=== PATIENT | male | born 1995 | race Caucasian/White ===

== ENCOUNTER → 2023-01-10 | Outpatient (CLI) | payer BC, SELFPAY ==
[2023-01-10 10:18] LABS: Absolute Lymphocyte Count 1.26 X10^3/uL (0.83-4.51); Absolute Neutrophil Count 2.1 X10^3/uL (2.0-7.7); Basophil# 0.02 X10^3/uL; Basophil% 0.5 % (0-1); Eosinophil# 0.06 X10^3/uL; Eosinophils% 1.6 % (0-5); Hemoglobin 16.2 g/dL (13.0-16.5); Lymphocyte # 1.26 X10^3/ul (0.83-4.51); Lymphocyte % 33.7 % (19-41); Mean Corp Hgb Conc 34.5 g/dL (32-36); Mean Platelet Vol. 10.5 fl (6.2-12.0); Monocyte# 0.32 X10^3/uL; Monocyte% 8.6 % (0-10); NRBC Flagged by Analyzer 0 % (0-5); Neutrophil # 2.07 X10^3/uL (2.7-7.7); Neutrophil % 55.3 % (47-70); Platelet Count 175 K/mm3 (150-450); RBC Distribution Width CV 11.6 % (11.6-14.6); RBC Distribution Width SD 38.1 fl (35.1-43.9); Red Blood Count 5.22 M/mm3 (4.6-6.2); White Blood Count 3.7 K/mm3 (4.4-11.0)
[2023-01-10 11:03] LABS: Rheumatoid Factor < 10.0 IU/mL (<15)
[2023-01-16 14:07] LABS: Aspirgillus flavus Negative (Neg:<1:1); Aspirgillus fumigatus Negative (Neg:<1:1); Aspirgillus niger Negative (Neg:<1:1); Cytoplasmic Ab (C-ANCA) <1:20 titer (Neg:<1:20)
[2023-01-16 15:36] LABS: CCP IgG Antibodies 1 units (0-19); Immunoglobulin E 54 IU/mL (6-495); Perinuclear Ab (P-ANCA) <1:20 titer (Neg:<1:20)
[2023-01-19 02:45] LABS: Alternaria tenuis 0.19 kU/L (Class 0/I); Ash, White <0.10 kU/L (Class 0); Aspergillus fumigatus <0.10 kU/L (Class 0); Bermuda Grass <0.10 kU/L (Class 0); Birch <0.10 kU/L (Class 0); Black Walnut <0.10 kU/L (Class 0); Cat Hair / Dander,Stand <0.10 kU/L (Class 0); Cedar, Mountain <0.10 kU/L (Class 0); Cladosporium herbarum <0.10 kU/L (Class 0); Cockroach, American 0.51 kU/L (Class I); Cottonwood <0.10 kU/L (Class 0); D farinae Mite <0.10 kU/L (Class 0); D pteronyssinus <0.10 kU/L (Class 0); Dog Epithelia <0.10 kU/L (Class 0); Elm, American White <0.10 kU/L (Class 0); Immunoglobulin E 49 IU/mL (6-495); Maple/Box Elder <0.10 kU/L (Class 0); Mouse Urine <0.10 kU/L (Class 0); Mulberry, White <0.10 kU/L (Class 0); Oak, White <0.10 kU/L (Class 0); Pecan <0.10 kU/L (Class 0); Penicillium Notatum <0.10 kU/L (Class 0); Pigweed, Rough <0.10 kU/L (Class 0); Ragweed, Short/Common <0.10 kU/L (Class 0); Russian Thistle <0.10 kU/L (Class 0); Sheep Sorrel <0.10 kU/L (Class 0); Sycamore, American <0.10 kU/L (Class 0); Timothy Grass <0.10 kU/L (Class 0)
[2023-01-19 20:26] LABS: ANTINUCLEAR ANTIBODIES DIRECT Negative (Negative)
== END | disposition home or self-care (01) ==
LOC: LAB 09:28
PROVIDERS: PCP Nurse Practitioner Family; Referring Provider Internal Medicine Critical Care Medicine; Visit Provider Internal Medicine Critical Care Medicine
DX: R06.02 Shortness of breath (principal)
CPT/HCPCS: 36415; 82785; 85025; 86003; 86038; 86200; 86225; 86235; 86256; 86431; 86606

== ENCOUNTER → 2023-02-15 | Outpatient (CLI) | payer BC, SELFPAY ==
[2023-02-15 08:53] VITALS: PULSE 55; PULSE 62; PULSE 64; PULSE 75; PULSE 76; PULSE 82; PULSE 85; PULSE 88; O2SAT 100; O2SAT 95; O2SAT 96; O2SAT 98; O2SAT 99
--- NOTE | 2023-02-16 07:37 | PCM.PSN.6M ---
PSN 6 Minute Walk Test 6 Minute Walk Test 6 Minute Walk Test: 6 Minute Walk Test PSN:6-Minute Walk Test Start: 02/15/23 08:53 Freq: Status: Active Protocol: [id number] Document 02/15/23 08:53 KAYLIN (Rec: 02/15/23 08:55 KAYLIN [id number]) 6 Minute Walk Test Date Performed 02/15/23 Time Performed 08:15 Height 5 ft 10 in Weight: 115 lb Weight in Pounds 115.[address]: Roberto Carlos Byrnes Assistive device used: None Pre-test Oxygen Delivery Method Room Air Pulse Ox (%) 98 Pulse Rate (60-100 beats/min) 55 L Dyspnea Andrew Scale (0-10) 0 Exertion Andrew Scale (6-20) 6 1st minute Oxygen Delivery Method Room Air Pulse Ox (%) 96 Pulse Rate (60-100 beats/min) 76 2nd minute Oxygen Delivery Method Room Air Pulse Ox (%) 95 Pulse Rate (60-100 beats/min) 82 3rd minute Oxygen Delivery Method Room Air Pulse Ox (%) 96 Pulse Rate (60-100 beats/min) 88 4th minute Oxygen Delivery Method Room Air Pulse Ox (%) 98 Pulse Rate (60-100 beats/min) 85 5th minute Oxygen Delivery Method Room Air Pulse Ox (%) 100 Pulse Rate (60-100 beats/min) 62 6th minute Oxygen Delivery Method Room Air Pulse Ox (%) 99 Pulse Rate (60-100 beats/min) 75 Dyspnea Andrew Scale (0-10) 1 Exertion Andrew Scale (6-20) 11 Post-test Oxygen Delivery Method Room Air Pulse Ox (%) 99 Pulse Rate (60-100 beats/min) 64 Full Laps Walked 16 Partial Lap, Number of Tiles Walked 18 Total Distance Walked (ft) 962 Interpretation Interpretation: The patient ambulated 962 feet over the course of 6 minutes beginning on room air without assistive devices. Pretesting oxygen saturation was noted to be 98% on room air. With ambulation, the sam oxygen saturation was 95%. There was no significant exertional oxygen desaturation. Recommendations Recommendations: There is no indication for the use of supplemental oxygen at this time.
== END | disposition home or self-care (01) ==
LOC: PSN 08:10
PROVIDERS: PCP Nurse Practitioner Family; Referring Provider Internal Medicine Critical Care Medicine; Visit Provider Internal Medicine Critical Care Medicine
DX: R06.02 Shortness of breath (principal)
CPT/HCPCS: 94618

== ENCOUNTER → 2023-02-22 | Outpatient (CLI) | payer BC, SELFPAY ==
--- NOTE | 2023-02-22 09:28 | RAD_ITS ---
STUDY: X-RAY CHEST REASON FOR EXAM: Male, 27 years old. Sob TECHNIQUE: PA and lateral views of the chest. COMPARISON: None. FINDINGS: The lungs are hyperinflated. Patient has a elongated chest. There is postoperative change overlying the right apex. However There is no demonstrated pleural abnormality. Normal size heart. Normal mediastinum and lupillo. Normal visualized pulmonary arteries. Normal visualized aortic arch and descending thoracic aorta. Normal visualized thoracic spine. Normal visualized ribs, clavicles, and shoulders. There is no demonstrated abnormality of the visualized soft tissue structures of the upper abdomen. RAD/Chest PA and Lateral IMPRESSION: Nonspecific hyperinflation of the lungs no visualized focal infiltrate. Postoperative changes overlying the right apex. Electronically Signed: Amalia Ivan MD at 22:21 EDT ,
--- NOTE | 2023-02-22 10:31 | BRONCHALL ---
Bronchoprovocation Challenge Bronchoprovocation Challenge Bronchoprovocation Challenge: Brief HPI: Patient is a 27 year old male, currently under the care of Dr. Byrnes, who presents to [facility] for a bronchoprovocation study secondary to diagnosis of dyspnea. Respiratory therapist reports good effort and reproducible results. Interpretation: Initial spirometry showed no large airways obstructive ventilatory defect. The patient was then given increasingly concentrated doses of methacholine in a stepwise/standardized fashion, using a modified ATS protocol. The patient?s maximum reduction in FEV1 was 2 percent predicted. Impression: Negative Bronchoprovocation study. This is NOT consistent with the diagnosis of asthma.
== END | disposition home or self-care (01) ==
PROVIDERS: PCP Nurse Practitioner Family; Visit Provider Internal Medicine Critical Care Medicine
DX: R06.02 Shortness of breath (principal)
CPT/HCPCS: 71046; 94070; 95070; J3490; J7674

== ENCOUNTER → 2023-03-16 | Outpatient (CLI) | payer BC, SELFPAY ==
--- NOTE | 2023-03-16 13:08 | ECHOD_ITS ---
Reason For Study: SOB Procedure This was a 2D Doppler, Color Flow transthoracic echocardiogram. Exam performed in department. Left Ventricle Normal LV size. Left ventricular systolic function is normal. The estimated ejection fraction is 55 %. Normal diastology for age. No regional wall motion abnormalities noted. Right Ventricle Normal RV size. Normal systolic function. Atria Normal left atrium. Normal right atrium. Patent foramen ovale. Hypermobile atrial septum. Mitral Valve Posterior leaflet mitral valve prolapse. Mild mitral valve prolapse, posterior leaflet. Tricuspid Valve Normal tricuspid valve. Aortic Valve Bicuspid aortic valve. Pulmonic Valve Normal pulmonic valve. Great Vessels Normal aortic root. The pulmonary artery is normal size. Normal inferior vena cava. Pericardium/Pleural No pericardial effusion. Medication 22 gauge I.V. with prn adaptor inserted into right arm. Performed a rapid injection of agitated mix of 9 cc saline and 1cc air to assess for atrial septal defect. MMode/2D Measurements & Calculations LVIDd: 5.4 cm IVSd: 0.70 cm Ao root diam: 3.3 cm LVIDs: 4.2 cm LVPWd: 0.78 cm LA dimension: 2.8 cm RVDd: 3.2 cm FS: 22.1 % LAV(MOD-bp): 39.6 ml LA A4 area: 15.7 cm2 RA A4 area: 14.0 cm2 LAV(MOD-bp) Indexed: 23.7 ml/m2 LAV(MOD-sp2): 39.1 ml LAV(MOD-sp4): 38.9 ml Time Measurements MV dec time: 0.32 sec Doppler Measurements & Calculations MV E max jay: 67.0 cm/sec Lat Peak E' Jay: 11.1 cm/sec Med Peak E' Jay: 11.4 cm/sec MV A max jay: 45.0 cm/sec E/E' lat: 6.1 E/E' med: 5.9 MV E/A: 1.5 MV V2 max: 78.6 cm/sec MV P1/2t max jay: 79.5 cm/sec Ao V2 max: 119.2 cm/sec MV max P.5 mmHg MV P1/2t: 95.4 msec Ao max P.7 mmHg MV V2 mean: 33.1 cm/sec MV dec slope: 243.9 cm/sec2 Ao V2 mean: 82.0 cm/sec MV mean P.57 mmHg Ao mean P.1 mmHg MV V2 VTI: 25.3 cm MVA(P1/2t): 2.3 cm2 Ao V2 VTI: 24.0 cm AV (velocity ratio): 0.52 LV V1 max: 66.3 cm/sec PA V2 max: 85.5 cm/sec LV V1 max P.8 mmHg PA V2 mean: 64.9 cm/sec LV V1 mean P.99 mmHg LV V1 mean: 45.9 cm/sec LV V1 VTI: 12.6 cm ECHO/Echo Complete Interpretation Summary Hypermobile atrial septum. Normal LV size. Left ventricular systolic function is normal. The estimated ejection fraction is 55 %. Normal diastology for age. Bicuspid aortic valve. Mild mitral valve prolapse, posterior leaflet Ordering Physician: Roberto Carlos Byrnes Referring Physician: Roberto Carlos Byrnes Performed By: Cachorro Stahl RCS
== END | disposition home or self-care (01) ==
PROVIDERS: PCP Nurse Practitioner Family; Referring Provider Internal Medicine Critical Care Medicine; Visit Provider Internal Medicine Critical Care Medicine
DX: R06.02 Shortness of breath (principal)
CPT/HCPCS: 93306; A4216

== ENCOUNTER → 2023-04-29 | Outpatient (CLI) | payer BC, SELFPAY ==
--- NOTE | 2023-05-02 07:11 | STRESSREP ---
Stress Test Report Exercise stress test. 27-year-old man with dyspnea on exertion Stress protocol: Resting EKG demonstrates sinus bradycardia with a rate of 54 bpm resting blood pressure is 130/90 mmHg. The patient exercised according to the regular Deondre protocol for a total duration of 12 minutes completing stage IV of the Deondre protocol and attaining a maximum heart rate of 164 bpm which was 84% of maximum predicted heart rate; the maximum workload was 13.4 metabolic equivalents. At rest there were no ST or T wave changes noted to suggest ischemia and at peak exercise upsloping ST changes only were noted which did not meet the criteria for ischemia. No clinical angina was noted the test was terminated due to the target heart rate being achieved/fatigue. The peak blood pressure was 180/80 mmHg. Rate-pressure product was 27,800, occasional premature ventricular complexes were noted with exercise especially during stage II with some couplets present. Conclusion: Stress test with no EKG criteria for ischemia at a high workload with premature ventricular complexes noted.
== END | disposition home or self-care (01) ==
LOC: CVS 11:44
PROVIDERS: PCP Nurse Practitioner Family; Referring Provider Internal Medicine Cardiovascular Disease; Visit Provider Internal Medicine Cardiovascular Disease
DX: R06.02 Shortness of breath (principal)
CPT/HCPCS: 93017

== ENCOUNTER 2023-05-21 09:58 | Emergency (ER) | payer BC, SELFPAY ==
[2023-05-21 09:59] VITALS: BP 190/93; PULSE 39; RESP 14; TEMP 36.6; O2SAT 100; BMI 16.0
--- NOTE | 2023-05-21 10:26 | EKG12_ITS ---
Test Reason : EDWARD Blood Pressure : / mmHG Vent. Rate : 067 BPM Atrial Rate : 067 BPM P-R Int : 128 ms QRS Dur : 092 ms QT Int : 404 ms P-R-T Axes : 063 095 068 degrees QTc Int : 426 ms Sinus rhythm with frequent Premature ventricular complexes in a pattern of bigeminy Rightward axis Incomplete right bundle branch block Borderline ECG Confirmed by BHASKAR LEUNG, DEBROAH ([id number]), editor & co founder TATA MICHAEL ([id number]) on 05/23/2023 12:57:31 PM Referred By: LOUANN Confirmed By:DEBORAH MURO MD
--- NOTE | 2023-05-21 10:30 | EX.ED.DYSGE1 ---
HPI History of Present Illness Chief Complaint: Dizziness Informant: patient Narrative Narrative: 27-year-old patient has been having palpitations with mild lightheadedness for years. He is followed with cardiology for this, he has been referred to EP at [facility], they did not want to do an EP study on him according to the patient because he is not that bad. He has never passed out. Today, he was at his PCPs for routine follow-up after being treated with an antibiotic for cervical lymphadenopathy of unknown etiology, he states that is completely gone and better now, and his PCP detected that he was bradycardic and he was feeling lightheaded again, and although he states this is not unusual for him he was referred to the ER to get checked. He does have some occasional loose diarrhea, but that is not severe or acute. [facility] Medical History Allergic rhinitis Asthma Bradycardia Bronchitis Chest pain Cough Fracture, rib H/O thoracic outlet syndrome Headache Peripheral cyanosis Pulmonary air trapping Scoliosis Shoulder pain Smokeless tobacco use Tachycardia Home Medications albuterol sulfate 90 mcg/actuation aerosol inhaler 2 puff inhalation Q6H PRN shortness of breath or wheezing 02/22/23 [History Last Taken Unknown] inhalational spacing device ([employer] Marie C spacer) #1 ea 02/22/23 [History Last Taken Unknown] ibuprofen 200 mg capsule 400 mg PO BID PRN 04/06/23 [History Last Taken Unknown] multivitamin with minerals-folic acid 200 mcg chewable tablet (Adult Multivitamin Gummies) tab PO 04/06/23 [History Last Taken Unknown] budesonide-formoterol HFA 160 mcg-4.5 mcg/actuation aerosol inhaler (Symbicort) 2 puff inhalation BID #3 ea 04/26/23 [Rx Last Taken Unknown] Allergy/AdvReac Type Severity Reaction Status Date / Time milk Allergy Severe Diarrhea Verified 05/21/23 10:01 amitriptyline Allergy Unknown dizziness Verified 05/21/23 10:01 gabapentin Allergy Unknown Unknown Verified 05/21/23 10:01 Penicillins Allergy Unknown unknown Verified 05/21/23 10:01 shellfish derived Allergy Unknown unknown Verified 05/21/23 10:01 amoxicillin [From Augmentin] Allergy Diarrhea Verified 05/21/23 10:01 clavulanic acid Allergy Diarrhea Verified 05/21/23 10:01 [From Augmentin] fish derived AdvReac Diarrhea Verified 05/21/23 10:01 [seafood - derived] Family History Mother Hypertension CVA (cerebral vascular accident) Grandfather Lung cancer paternal Grandmother Colon cancer paternal Diabetes Uterine cancer Grandfather Lung cancer maternal Surgical History History of resection of rib (12/16/15) History of tonsillectomy and adenoidectomy Social History Smoking Status: Never smoker alcohol intake: current alcohol intake frequency: holidays/special occasions only substance use type: does not use caffeine: Yes Type: carbonated beverages Number of servings: 1 ROS ROS ED Constitutional Constitutional ED: Denies chills or fever(s) Eyes Eyes: Denies change in vision or diplopia ENT ENT ED: Denies rhinorrhea or sore throat Cardiovascular Cardiovascular: Reports lightheadedness and palpitations; Denies chest pain Respiratory/Chest Respiratory/Chest: Denies cough or dyspnea Gastrointestinal Gastrointestinal: Reports diarrhea; Denies abdominal pain, melena, nausea or vomiting Genitourinary Genitourinary ED: Denies dysuria or hematuria Musculoskeletal Musculoskeletal: Denies back pain or neck pain Integumentary Denies abscess or rash Neurologic Neurologic: Reports paresthesias; Denies headache(s) or weakness Psychiatric Psychiatric: Denies anxiety or suicidal thoughts EXAM Physical Exam Const Vital Signs: 05/21/23 09:59 Temperature 97.9 F Temperature Source Temporal Pulse Rate 39 L Respiratory Rate 14 Blood Pressure 190/93 H Blood Pressure Mean 125 Pulse Ox 100 Oxygen Delivery Method Room Air Positive well nourished and well developed Constitutional Narrative: Marfanoid body habitus General Appearance ED: well developed and NAD HEENT Reports moist mucous membranes normocephalic and atraumatic Eyes PERRL and EOMs intact bilaterally Neck full ROM and supple Resp normal respiratory effort and clear to auscultation bilaterally Cardio no murmurs Rate: bradycardia Rhythm: abnormal rhythm regularly irregular (Correlating with ventricular bigeminy on the monitor) Peripheral Pulses: pulses 2+ throughout GI non-tender and non-distended Auscultation: normoactive bowel sounds Palpation: soft Back/Spine no CVA tenderness General Back: other FROM Extremity normal to inspection General Extremety ED: Negative for edema, pulses abnormal or tenderness General Extremity: Negative for edema or pulses abnormal Neuro oriented x3, CN's II-XII intact bilaterally and no sensory deficits noted Sensorium / Orientation: awake and alert Motor Exam: strength 5/5 throughout Skin no rashes or lesions noted and no wounds MDM MDM MDM Narrative Medical decision making narrative: Patient states he has followed with cardiology Dr. Bradley, and he has also been evaluated for an EP study. Furthermore, he has a marfanoid appearance to his body, he has tingling in all 4 extremities chronically, and he is being referred to genetics for evaluation. He also has a history of thoracic outlet syndrome I do not think that is related here. He is young and healthy and his blood pressures are little on the high side today, the triage blood pressure was 190/93, but while I am examining the patient he is 140/100. This is helping him to perfuse, and he has never passed out from this with symptoms for years. When he is in sinus rhythm here he has a rate of about 60 sometimes closer to 50, and then when he goes into bigeminy, he understandably cuts his rate down to around 30. He did this while I was talking to him and he looks well. He states he feels fine. He has compensated for this for years, when he feels more lightheaded than usual he moves around and does some activity and drinks caffeinated beverages, and that his heart rate goes up and he feels fine. I check some electrolytes on him because of the diarrhea, they are fine, and I do not think he needs any other testing emergently right now and he is in agreement. Lab Data Attestation: I reviewed the patient's lab results. Labs: Laboratory Results - last 24 hr 05/21/23 10:11 Sodium 138 Potassium 4.3 Chloride 106 Carbon Dioxide 28.0 Anion Gap 4 L BUN 10 Creatinine 1.05 Estim Creat Clear Calc 77.97 Est GFR (MDRD) Af Amer 108 Est GFR (MDRD) Non-Af 89 BUN/Creatinine Ratio 9.5 L Glucose 105 Calcium 9.9 Rhythm Strip Rhythm Strip: Sinus rhythm with intermittent ventricular bigeminy Rate: 60 Ectopy: PVC(s) EKG Initial EKG: Attestation: I personally reviewed and interpreted this EKG as follows: Interpretation: Sinus Rhythm Comments: Ventricular bigeminy with appropriate compensatory pauses, sinus and no bundle branch block or axis deviation Prior EKG tracings: available for review (Bigeminy was not on the prior EKG, which was performed as an outpatient, but morphology and axis is unchanged) Discharge Plan Triage Chief Complaint: Dizziness ED Provider: Stewart Lombardi Dx/Rx/DC Orders Clinical Impression: Ventricular bigeminy Instructions: PVCs Prescriptions: No Action albuterol sulfate 90 mcg/actuation HFA aerosol inhaler 2 puff inhalation Q6H PRN (Reason: shortness of breath or wheezing) Label Comments: INHALE 2 PUFFS BY MOUTH INTO LUNGS EVERY 6 HOURS NEEDED FOR SHORTNESS OF BREATH. (DME) Sherry Salazar [facility] Spacer See Rx Instructions .ROUTE .MEDSUPPLY Qty: 1 Label Comments: USE DIRECTED WITH INHALER Rx Instructions: As directed ibuprofen 200 mg capsule 400 mg PO BID PRN Adult Multivitamin Gummies 200 mcg tablet,chewable PO budesonide-formoterol [Symbicort] 160-4.5 mcg/actuation HFA aerosol inhaler 2 puff inhalation BID Qty: 3 3RF Primary Care Provider: Mary Hawley NP Referrals: Austen Bradley MD [Med Staff - Active Staff] - (if symptoms generally get worse or you have new issues) Mary Hawley CUSTOMER ENGINEER, CUSTOMER ENGINEER-C [Primary Care Provider] - Disposition Disposition: Home, Self Care
[2023-05-21 10:52] LABS: Anion Gap 4 (5-15); BUN 10 mg/dL (7-18); BUN/Creat Ratio 9.5 RATIO (10-20); Calcium,Total 9.9 mg/dL (8.5-10.1); Chloride 106 mmol/L (98-107); Creatinine, Serum 1.05 mg/dL (0.70-1.30); EST Glomerular Filtration Rate 89 mL/min (>60); Est Glom Filt Rate - Afr Amer 108 mL/min (>60); Estimated Creatinine Clearance 77.97 ml/min; Glucose 105 mg/dL (74-106); Potassium 4.3 mmol/L (3.5-5.1); Sodium Level 138 mmol/L (136-145)
[2023-05-21 11:46] VITALS: BP 109/77; PULSE 45; RESP 16; O2SAT 99
== END 2023-05-21 11:47 | disposition home or self-care (01) ==
PROVIDERS: Emergency Provider Emergency Medicine; PCP Nurse Practitioner Family; Visit Provider Emergency Medicine
DX: I49.8 Other specified cardiac arrhythmias (principal); R42 Dizziness and giddiness
CPT/HCPCS: 80048; 93005; 99284; A4216

== ENCOUNTER → 2023-06-06 | Outpatient (CLI) | payer BC, SELFPAY | END | disposition home or self-care (01) | LOC: PSN 13:15 | PROVIDERS: PCP Nurse Practitioner Family; Referring Provider Nurse Practitioner Family; Visit Provider Nurse Practitioner Family | DX: R00.1 Bradycardia, unspecified (principal) | CPT/HCPCS: 93225; 93226 ==

== ENCOUNTER → 2023-07-18 | Outpatient (CLI) | payer BC, SELFPAY ==
[2023-07-27 13:07] LABS: CF, Screen Comment: (.)
== END | disposition home or self-care (01) ==
LOC: LAB 15:30
PROVIDERS: PCP Nurse Practitioner Family; Referring Provider Nurse Practitioner Acute Care; Visit Provider Nurse Practitioner Acute Care
DX: R05.8 Other specified cough (principal)
CPT/HCPCS: 36415; 81220

== ENCOUNTER → 2023-08-19 | Outpatient (CLI) | payer BC, SELFPAY ==
[2023-08-19 17:50] LABS: Absolute Lymphocyte Count 2.86 X10^3/uL (0.83-4.51); Absolute Neutrophil Count 3.1 X10^3/uL (2.0-7.7); Basophil# 0.03 X10^3/uL; Basophil% 0.5 % (0-1); Eosinophil# 0.09 X10^3/uL; Eosinophils% 1.4 % (0-5); Hematocrit 47.3 % (40-54); Hemoglobin 15.9 g/dL (13.0-16.5); Lymphocyte # 2.86 X10^3/ul (0.83-4.51); Lymphocyte % 43.5 % (19-41); Mean Corp Hgb Conc 33.6 g/dL (32-36); Mean Corpuscular Hgb 30.5 pg (27.0-32.0); Mean Corpuscular Volume 90.8 fL (80-94); Mean Platelet Vol. 10.6 fl (6.2-12.0); Monocyte# 0.49 X10^3/uL; Monocyte% 7.4 % (0-10); NRBC Flagged by Analyzer 0 % (0-5); Platelet Count 204 K/mm3 (150-450); RBC Distribution Width CV 11.8 % (11.6-14.6); RBC Distribution Width SD 38.8 fl (35.1-43.9); Red Blood Count 5.21 M/mm3 (4.6-6.2); White Blood Count 6.6 K/mm3 (4.4-11.0)
[2023-08-19 18:25] LABS: Erythrocyte Sedimentation Rate < 1 mm/hr (0-20)
[2023-08-19 18:34] LABS: ALB/GLOB Ratio 1.4 RATIO (0.9-2.4); AST(SGOT) 14 U/L (15-37); Alanine Aminotransfer ALT/SGPT 29 U/L (16-61); Albumin, Serum 4.5 g/dL (3.2-5.0); Alkaline Phosphatase 83 U/L (45-117); Anion Gap 5 (5-15); BUN 14 mg/dL (7-18); BUN/Creat Ratio 12.8 RATIO (10-20); CRP < 2.90 mg/L (0.0-3.0); Chloride 107 mmol/L (98-107); Creatinine, Serum 1.09 mg/dL (0.70-1.30); EST Glomerular Filtration Rate 86 mL/min (>60); Est Glom Filt Rate - Afr Amer 103 mL/min (>60); Globulin 3.2 g/dL (2.2-4.2); Glucose 80 mg/dL (74-106); Potassium 3.6 mmol/L (3.5-5.1); Protein, Total 7.7 g/dL (6.4-8.2); Rheumatoid Factor < 10.0 IU/mL (<15); Sodium Level 140 mmol/L (136-145)
[2023-08-19 18:41] LABS: Color, Urine Yellow (Yellow); Glucose, Dipstick Normal (Normal); Ketone-Dipstick Negative (Negative); Leukocyte Esterase-Dipstick Negative /ul (Negative); Nitrite-Dipstick Negative (Negative); Occult Blood-Urine Negative /ul (Negative); Protein-Dipstick Negative (Negative); Urine Bilirubin Dipstick Negative (Negative); Urine Clarity Sl. Cloudy (Clear); Urine Urobilinogen Normal (Normal)
[2023-08-19 18:47] LABS: Hepatitis B Surface Antibody Non-Reactive; Hepatitis B Surface Antigen Non-Reactive (Nonreactive); Hepatitis C Antibody Non-Reactive (Nonreactive)
[2023-08-19 19:08] LABS: Protein, Urine (Random) 15.7 mg/dL (<11.9); Protein:Creat Ratio 102 mg/g CRE (0-200)
[2023-08-22 12:08] LABS: ANTINUCLEAR ANTIBODIES DIRECT Negative (Negative)
[2023-08-23 21:07] LABS: CCP IgG Antibodies 0 units (0-19); G6PD Quant Test 290 (156-397)
== END | disposition home or self-care (01) ==
LOC: MTLAB 15:17
PROVIDERS: PCP Nurse Practitioner Family; Referring Provider Internal Medicine Rheumatology; Visit Provider Internal Medicine Rheumatology
DX: M06.4 Inflammatory polyarthropathy (principal); M35.7 Hypermobility syndrome; M41.9 Scoliosis, unspecified
CPT/HCPCS: 36415; 80053; 81002; 82570; 82955; 84156; 85025; 85652; 86038; 86140; 86200; 86431; 86706; 86803; 87340

== ENCOUNTER → 2023-10-19 | Outpatient (CLI) | payer BC, SELFPAY ==
--- NOTE | 2023-10-19 17:18 | CT_ITS ---
EXAM: CT CHEST WITHOUT INTRAVENOUS CONTRAST CLINICAL INDICATION: eval left lower lobe mass TECHNIQUE: Helically acquired images were obtained of the chest without intravenous contrast. This CT exam was performed using one or more of the following dose reduction techniques: automated exposure control, adjustment of the mA and/or kV according to patient size, and/or use of iterative reconstruction technique. COMPARISON: No relevant prior studies available. FINDINGS: LUNGS AND PLEURAL SPACES: Unremarkable. No mass. No consolidation or edema. No pleural effusion or thickening. No pneumothorax. HEART: Unremarkable. Heart size is normal. No pericardial effusion. No significant coronary artery calcifications. MEDIASTINUM: Unremarkable. No mediastinal or hilar adenopathy. Esophagus is unremarkable. No hiatal hernia. THYROID: Unremarkable. No thyroid lesions. BONES/JOINTS: Unremarkable. No suspicious lytic or blastic abnormality. VASCULATURE: Unremarkable. Thoracic aorta is non-dilated. CT/Chest without Contrast IMPRESSION: Negative CT chest without intravenous contrast. Electronically Signed: Mann Foss MD at 0:09 EST ,
== END | disposition home or self-care (01) ==
LOC: CT 17:15
PROVIDERS: PCP Nurse Practitioner Family; Referring Provider Nurse Practitioner Acute Care; Visit Provider Nurse Practitioner Acute Care
DX: J98.4 Other disorders of lung (principal)
CPT/HCPCS: 71250

== ENCOUNTER → 2023-11-03 | Outpatient (CLI) | payer BC, SELFPAY ==
[2023-11-03 10:25] LABS: Absolute Lymphocyte Count 1.29 X10^3/uL (0.83-4.51); Basophil# 0.02 X10^3/uL; Basophil% 0.5 % (0-1); Eosinophil# 0.07 X10^3/uL; Eosinophils% 1.9 % (0-5); Hematocrit 45.1 % (40-54); Hemoglobin 15.5 g/dL (13.0-16.5); Lymphocyte # 1.29 X10^3/ul (0.83-4.51); Lymphocyte % 34.2 % (19-41); Mean Corp Hgb Conc 34.4 g/dL (32-36); Mean Corpuscular Hgb 30.9 pg (27.0-32.0); Mean Platelet Vol. 10.7 fl (6.2-12.0); Monocyte# 0.37 X10^3/uL; Monocyte% 9.8 % (0-10); NRBC Flagged by Analyzer 0 % (0-5); Neutrophil # 2.01 X10^3/uL (2.7-7.7); Neutrophil % 53.3 % (47-70); Platelet Count 186 K/mm3 (150-450); RBC Distribution Width CV 11.8 % (11.6-14.6); RBC Distribution Width SD 38.1 fl (35.1-43.9); Red Blood Count 5.01 M/mm3 (4.6-6.2); White Blood Count 3.8 K/mm3 (4.4-11.0)
[2023-11-03 10:39] LABS: ALB/GLOB Ratio 1.4 RATIO (0.9-2.4); AST(SGOT) 20 U/L (15-37); Alanine Aminotransfer ALT/SGPT 23 U/L (16-61); Alkaline Phosphatase 74 U/L (45-117); Anion Gap 3 (5-15); BUN 18 mg/dL (7-18); BUN/Creat Ratio 16.5 RATIO (10-20); Chloride 107 mmol/L (98-107); Creatinine, Serum 1.09 mg/dL (0.70-1.30); EST Glomerular Filtration Rate 85 mL/min (>60); Est Glom Filt Rate - Afr Amer 103 mL/min (>60); Globulin 2.9 g/dL (2.2-4.2); Glucose 110 mg/dL (74-106); Magnesium 2.4 mg/dL (1.6-2.6); Potassium 4.2 mmol/L (3.5-5.1); Protein, Total 6.9 g/dL (6.4-8.2); Sodium Level 138 mmol/L (136-145)
== END | disposition home or self-care (01) ==
LOC: MTLAB 08:19
PROVIDERS: PCP Nurse Practitioner Family; Referring Provider Internal Medicine Rheumatology; Visit Provider Internal Medicine Rheumatology
DX: M06.4 Inflammatory polyarthropathy (principal); M35.7 Hypermobility syndrome; Z86.69 Personal history of other diseases of the nervous system and sense organs; Z79.899 Other long term (current) drug therapy
CPT/HCPCS: 36415; 80053; 83735; 85025

== ENCOUNTER → 2023-12-07 | Outpatient (CLI) | payer BC, SELFPAY ==
--- OUTSIDE RECORDS SUMMARY | 2023-12-07 16:27 | XMS RPT_ITS | CCD ---
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 Name Role Phone MARY DOZIER Admitting Unavailable MARY DOZIER Primary Care Unavailable MARY DOZIER Attending Unavailable ROBERT BYRNES Consulting Unavailable PROVIDER, UNKNOWN Consulting Unavailable PROVIDER, UNKNOWN Consulting Unavailable PROVIDER, UNKNOWN Consulting Unavailable MARY DOZIER Admitting Unavailable MARY DOZIER Primary Care Unavailable MARY DOZIER Attending Unavailable ROBERT BYRNES Consulting Unavailable PROVIDER, UNKNOWN Consulting Unavailable PROVIDER, UNKNOWN Consulting Unavailable PROVIDER, UNKNOWN Consulting Unavailable Austen Bradley Unavailable Mary Dozier Primary Care Provider [phone] Roberto Carlos Byrnes Unavailable Mary Hall Primary Care Provider [phone] Austen Bradley MD Unavailable MARY DOZIER Primary Care Unavailable MARY DOZIER Referring Unavailable FABI MORA Attending Unavailable KIANNA DOZIERA Reva Primary Care Unavailable FABI MORA Attending Unavailable KIANNA DOZIERA Reva Primary Care Unavailable MARY DOZIER Referring Unavailable Mary Dozier CNP Primary Care Provider PADMA REYES Attending Unavailable KIANNA DOZIERA K Primary Care Unavailable MAURICE HANEY Referring Unavailable KIANNA DOZIERA Reva Primary Care Unavailable MAURICE HANEY Attending Unavailable AUSTEN BRADLEY Referring Unavailable MARY DOZIER Primary Care Unavailable Allergies Allergy Classification Reported Allergen(s) Allergy Type Date of Onset Reaction(s) Facility (2 sources) Amoxicillin; Translations: [AMOXICILLIN] Drug Allergy [address] [place] [address] Repository (7 sources) Amitriptyline; Translations: [AMITRIPTYLINE] Drug Allergy 3 Other: See Comments [facility] (7 sources) Amoxapine; Translations: [AMOXAPINE] Drug Allergy [address] [facility] (6 sources) Amoxicillin Drug Allergy [address] [facility] (7 sources) Clavulanate; Translations: [CLAVULANIC ACID] Drug Allergy [address] [facility] (7 sources) cow milk allergenic extract; Translations: [MILK] Drug Allergy [address] [facility] (7 sources) Fish derivative; Translations: [FISH DERIVED] Drug Intolerance [address] [facility] (7 sources) gabapentin; Translations: [GABAPENTIN] Drug Allergy [address] [facility] (7 sources) Penicillins; Translations: [PENICILLINS] Drug Allergy [address] [facility] (7 sources) Shellfish; Translations: [SHELLFISH] Food Intolerance 5 Other: See Comments [facility] Medications Current Medications Medication Drug Class(es) Dates Sig (Normalized) Sig (Original) iv contrast (will be provided with radiology test) (1 source) Start: 07-22-2023 End: 07-23-2023 iv contrast (will be provided with radiology test) Indications: PVCs (premature ventricular contractions) , Mitral valve prolapse , Bicuspid aortic valve , Palpitations , Other cardiomyopathy (HCC) MRI Cardiac w/Qflow Inject, intravenously, once for 1 dose. No IV access, insert saline lock prior to the beginning of sedation, infusion, injection of imaging exam. Discontinue saline lock post exam. If Pt has a central line or IVAD, may access for administration according to line specific nursing protocol. Once exam is complete flush line and de-access according to line specific nursing protocol in the MR contrast administration guidelines link 1 Each 0 07/22/2023 07/23/2023 Active Completed/Discontinued Medications Medication Drug Class(es) Dates Sig (Normalized) Sig (Original) albuterol 0.83 mg/ml inhalation solution (12 sources) beta2-Adrenergic Agonist Start: 07-18-2023 albuterol (PROVENTIL) 2.5 mg /3 mL (0.083 %) nebulizer solution Problems Active Problems Problem Classification Problem Date Documented Date Episodic/Chronic Anxiety disorders (6 sources) Anxiety disorder; Translations: [Anxiety disorder, unspecified] Onset: 03-01-2019 07-19-2023 Chronic Cardiac and circulatory congenital anomalies (10 sources) Bicuspid aortic valve; Translations: [Congenital insufficiency of aortic valve] Onset: 07-19-2023 07-19-2023 Chronic Cardiac dysrhythmias (10 sources) Multiple premature ventricular complexes; Translations: [Ventricular premature depolarization] Onset: 04-04-2019 07-19-2023 Chronic Essential hypertension (6 sources) Essential hypertension; Translations: [Essential (primary) hypertension] 07-19-2023 Chronic Heart valve disorders (16 sources) Aortic valve regurgitation; Translations: [Nonrheumatic aortic (valve) insufficiency] Onset: 08-01-2019 07-19-2023 Chronic Other acquired deformities (2 sources) Neuromuscular scoliosis, thoracolumbar region; Translations: [Scoliosis associated with other conditions] Onset: 07-28-2023 07-28-2023 Chronic Other lower respiratory disease (1 source) Cyanosis; Translations: [Cyanosis] Onset: 03-22-2023 Episodic Other nervous system disorders (7 sources) Thoracic outlet syndrome; Translations: [Brachial plexus disorders] Onset: 04-16-2015 12-17-2015 Chronic Other nervous system disorders (6 sources) Chronic pain syndrome; Translations: [Chronic pain syndrome] Onset: 02-14-2019 07-19-2023 Chronic Other nutritional; endocrine; and metabolic disorders (2 sources) Body mass index less than 16.5; Translations: [Body mass index (BMI) 19.9 or less, adult] Onset: 07-28-2023 07-28-2023 Episodic Other screening for suspected conditions (not mental disorders or infectious disease) (3 sources) Encounter for screening for diseases of the blood and blood-forming organs and certain disorders involving the immune mechanism; Translations: [Encounter for screening for other metabolic disorders] Onset: 03-22-2023 Episodic Jossie-; endo-; and myocarditis; cardiomyopathy (except that caused by tuberculosis or sexually transmitted disease) (2 sources) Cardiomyopathy; Translations: [Other cardiomyopathies] Onset: 09-29-2023 09-29-2023 Chronic Unclassified (2 sources) Labs Only; Translations: [Labs Only] Onset: 07-28-2023 Past or Other Problems Problem Classification Problem Date Documented Da te Episodic/Chronic Blindness and vision defects (6 sources) Amblyopia; Translations: [Unspecified amblyopia, unspecified eye] Onset: 02-14-2019 07-19-2023 Episodic Cardiac dysrhythmias (17 sources) Bradycardia, unspecified; Translations: [Bradycardia] Onset: 03-22-2023 07-19-2023 Episodic Nonspecific chest pain (6 sources) Atypical chest pain; Translations: [Other chest pain] Onset: 04-04-2019 07-19-2023 Episodic Other connective tissue disease (6 sources) Bursitis of right shoulder; Translations: [Bursitis of right shoulder] Onset: 07-08-2016 07-08-2016 Episodic Other connective tissue disease (6 sources) Fibromyositis; Translations: [Fibromyalgia] Onset: 03-05-2019 07-19-2023 Episodic Results Test Name Value Interpretation Reference Range Facil ity Vital Signs Date Time Vital Sign Value Performing Clinician Faci lity 07-28-2023 08:05-0400 Body height 177.8 cm Fabi Mora MD Work Phone: [facility] 07-28-2023 08:05-0400 Body mass index (BMI) [Ratio] 16.39 kg/m2 Fabi Mora MD Work Phone: [facility] 07-28-2023 08:05-0400 Body temperature 98.01 [degF] Fabi Mora MD Work Phone: [facility] 07-28-2023 08:05-0400 Body weight 51.8 kg Fabi Mora MD Work Phone: [facility] 07-28-2023 08:05-0400 Diastolic blood pressure 74 mm[Hg] Fabi Mora MD Work Phone: [facility] 07-28-2023 08:05-0400 Heart rate 45 /min Fabi Mora MD Work Phone: [facility] 07-28-2023 08:05-0400 Respiratory rate 16 /min Fabi Mora MD Work Phone: [facility] 07-28-2023 08:05-0400 SaO2% (BldA) [Mass fraction] 100 % Fabi Mora MD Work Phone: [facility] 07-28-2023 08:05-0400 Systolic blood pressure 123 mm[Hg] Fabi Mora MD Work Phone: [facility] Encounters Encounter Date Encounter Type Care Provider Facility Start: 10-06-2023 Telephone encounter Maurice huggins MD Work Phone: [place] PROVID[facility] ADULT Procedures Date Procedure Procedure Detail Performing Clinician Start: 09-29-2023 Cardiac mri w/wo con trast & further seq Maurice Haney MD Work Phone: Plan of Treatment Date Care Activity Detail Author Start: 07-20-2024 BP CONTROLLED (<130/80) BP CON TROLLED (<130/80) [facility] Start: 07-29-2023 Covid-19 Vaccine ( season) Covid-19 Vaccine ( season) [facility] Start: 07-29-2023 Influenza vaccination [facility] Start: 11-28-2022 DEPRESSION ASSESSMENT DEPRESSION ASS ESSMENT [facility] Start: 07-08-2021 COVID-19 VACCINE (3 - Moderna series) COVID-19 VACCINE (3 - Moderna series) [facility] Start: 2014 Third diphtheria, te tanus and acellular pertussis (DTaP) vaccination TDAP (ADULT) [facility] Start: 2013 ANNUAL PCP TEAM CANDY SEPARATOR HARD KERRY DISEASE VISIT ANNUAL PCP TEAM CHRONIC DISEASE VISIT [facility] Start: 2013 HEPATITIS C SCREENING HEPATITIS C SC DL [facility] Start: 2013 HIV SCREENING HIV SCREENING [facility] Start: 2010 HIV screening HIV SCREENING DISCUSSION [facility] Start: [address] [facility] Start: 1995 COVID-19 VACCINE (#1) COVID-19 VACCI NE (#1) [facility] Start: 1995 HEPATITIS B (3 of 3 - 3-dose series) HEPATITIS B (3 of 3 - 3-dose series) [facility] Start: 1995 Hepatitis B Vaccine (3 of 3 - 3-dose series) Hepatitis B Vaccine (3 of 3 - 3-dose series) [facility] Start: 1995 Hepatitis C screening HEPATITI S C VIRUS SCREENING [facility] Start: 1995 Tetanus vaccination TETANUS [facility] [place] [facility] [place] [facility] Immunizations Immunization Date Immunization Notes Care Provider Fa cili 03-22-2000 diphtheria, tetanus toxoids and acellular pertussis vaccine, unspecified formulation Maurice Haney MD Work Phone: [facility] Work Phone: 03-22-2000 measles, mumps and rubella virus vaccine Maurice Haney MD Work Phone: [facility] Work Phone: 03-22-2000 poliovirus vaccine, inactivated Maurice Haney MD Work Phone: [facility] Work Phone: 03-22-2000 varicella virus vaccine Maurice Haney MD Work Phone: [facility] Work Phone: 09-04-1996 diphtheria, tetanus toxoids and acellular pertussis vaccine, unspecified formulation Maurice Haney MD Work Phone: [facility] Work Phone: 09-04-1996 haemophilus influenz ae type b vaccine, PRP-T conjugate Maurice Haney MD Work Phone: [facility] Work Phone: 09-04-1996 measles, mumps and rubella virus vaccine Maurice Haeny MD Work Phone: [facility] Work Phone: 1995 diphtheria, tetanus toxoids and acellular pertussis vaccine, unspecified formulation Maurice Haney MD Work Phone: [facility] Work Phone: 1995 haemophilus influenz ae type b vaccine, PRP-T conjugate Maurice Haney MD Work Phone: [facility] Work Phone: 1995 poliovirus vaccine, inactivated Maurice Haney MD Work Phone: [facility] Work Phone: 1995 diphtheria, tetanus toxoids and acellular pertussis vaccine, unspecified formulation Maurice Haney MD Work Phone: [facility] Work Phone: 1995 haemophilus influenz ae type b vaccine, PRP-T conjugate Maurice Haney MD Work Phone: [facility] Work Phone: 1995 poliovirus vaccine, inactivated Maurice Haney MD Work Phone: [facility] Work Phone: 1995 diphtheria, tetanus toxoids and acellular pertussis vaccine, unspecified formulation Maurice Haney MD Work Phone: [facility] Work Phone: 1995 haemophilus influenz ae type b vaccine, PRP-T conjugate Maurice Haney MD Work Phone: [facility] Work Phone: 1995 hepatitis B vaccine, pediatric or pediatric/adolescent dosage Maurice Haney MD Work Phone: [facility] Work Phone: 1995 poliovirus vaccine, inactivated Maurice Haney MD Work Phone: [facility] Work Phone: 1995 hepatitis B vaccine, unspecified formulation Maurice Haney MD Work Phone: [facility] 1995 hepatitis B vaccine, pediatric or pediatric/adolescent dosage Maurice Haney MD Work Phone: [facility] Work Phone: Payers Date Payer Category Payer Unknown [id number] 2021 Unknown [id number] 1995 Unknown [id number] 1995 Unknown [id number] 1995 Unknown [id number] 1995 Unknown [id number] 1995 Unknown [id number] Social History Date Type Detail Facility Start: 09-15-2015 End: 07-28-2023 Tobacco smoking status LAIS Never smoked tobacco [facility] Start: 09-15-2015 End: 07-28-2023 Tobacco use and exposure User of smokeless tobacco [facility] History of tobacco use Snuff User [facility] Start: 07-20-2023 End: 07-28-2023 Alcohol intake Ex-drinker (finding) [facility] Start: 07-20-[address] [facility] Start: 07-20-2023 Tobacco use panel [facility] National Score (1-10 0), lower number is lower risk 95 [facility] Start: 1995 Sex Assigned At Not on file [facility] Start: 07-28-2023 Alcohol Comment 1 glass of wine per year [facility] Start: 1995 Sex Assigned At Male O [facility] Start: 07-28-2023 Gender identity Identifies as male gender (finding) [facility] Start: 07-28-2023 Sexual orientation Heterosexual (fin ding) [facility] Clinical Notes 07-20-2023 to 10-06-2023 Telephone Encounter - Sarita Minaya RN - 10/06/2023 10:26 AM ESTTelephone Encounter - Maurice Haney MD - 10/06/2023 9:03 AM Christos Curtis RT(R) - 09/29/2023 8:15 AM EDT Note Date & Type Note Facility 10-06-2023 Miscellaneous Notes Spoke with patient and notified of Dr. Haney's message and recommendation. Patient voiced understanding and wanted to know if you are still proceeding with the ablation? Will fax MRI cardiac report to Dr. Bradley and Mary Dozier APRN. Sarita Minaya RN Please let Mr. Vasquez know that the cardiac MRI showed some abnormalities. 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 No specific treatment is necessary for this finding. However, there are lung findings that his local doctors need to follow up on, there is a lung lesion and other findings and the radiologist recommended additional testing that his PCP should coordinate. After notifying Mr. Vasquez, please make sure Mary Dozier CNP, [employer] INST[employer] is aware of the findings and need for follow up evaluation. Make sure she gets copy of the MRI report, and also make sure Dr. Bradley is aware. Maurice Haney MD October 06, 2023 9:06 AM documented in this encounter [facility] 09-29-2023 Note HNO ID: [id number] Author: Christos Graves RT(R) Service: Radiology Author Type: Technologist Type: Progress Notes Filed: 09/29/2023 9:08 AM Note Text: Radiology Service Progress Note DATE OF SERVICE: September 29, 2023 TIME: 9:07 AM PATIENT IDENTITY VERIFICATION COMPLETED USING TWO (2) STANDARD IDENTIFIERS: Name and Date of confirmed by patient verbally. FALL SCREENING: Has the patient had 2 falls in the last year or 1 fall with injury or currently using an Ambulatory Assistive Device (Walker, Cane, Wheelchair, Crutches, etc.)? No PATIENT GENDER DATA: Male PATIENT RELEVANT IMPLANT DATA REVIEWED: Not Applicable ALLERGIES: Reviewed and unchanged CONTRAST ALLERGY: NO. EXAM: MRI - CONTRAST TYPE: GROUP II PERIPHERAL IV DATA: Ambulatory: A peripheral IV was started in the Right antecubital site with a Angio cath: 22 gauge. RADIOLOGY DEPARTMENT: MR; Exam(s) Completed: Cardiac: Cardiac SIGNATURE: RT Trace(R) PATIENT NAME: Dimitri Vasquez DATE: September 29, 2023 TIME: 9:07 AM [facility] 09-29-2023 History of Present illness Narrative Radiology Service Progress Note DATE OF SERVICE: September 29, 2023 TIME: 9:07 AM PATIENT IDENTITY VERIFICATION COMPLETED USING TWO (2) STANDARD IDENTIFIERS: Name and Date of confirmed by patient verbally. FALL SCREENING: Has the patient had 2 falls in the last year or 1 fall with injury or currently using an Ambulatory Assistive Device (Walker, Cane, Wheelchair, Crutches, etc.)? No PATIENT GENDER DATA: Male PATIENT RELEVANT IMPLANT DATA REVIEWED: Not Applicable ALLERGIES: Reviewed and unchanged CONTRAST ALLERGY: NO. EXAM: MRI - CONTRAST TYPE: GROUP II PERIPHERAL IV DATA: Ambulatory: A peripheral IV was started in the Right antecubital site with a Angio cath: 22 gauge. RADIOLOGY DEPARTMENT: MR; Exam(s) Completed: Cardiac: Cardiac SIGNATURE: RT Trace(R) PATIENT NAME: Dimitri Vasquez DATE: September 29, 2023 TIME: 9:07 AM documented in this encounter [facility] 09-20-2023 Miscellaneous Notes Moira, can you please protocol this cardiac MRI scheduled in [place] on 09/29/23? Christos Muñoz MRI documented in this encounter [facility] 09-10-2023 Note HNO ID: [id number] Author: Note, Interface Service: ? Author Type: ? Type: Progress Notes Filed: 09/10/2023 5:13 AM Note Text: Epic Scheduled Downtime: 09/10/2023 1:00:00 AM to 09/10/2023 1:28:00 AM [facility] 09-09-2023 Miscellaneous Notes Patient records received via electronic fax. Uploaded to [employer] drive. Outside records Lisa Gillis documented in this encounter [facility] 08-31-2023 Miscellaneous Notes Received a call from patient who indicated that he is experiencing more palpitations with heart rates in the upper 20's Patient indicated he is experiencing chest pain, like someone hit him in center of chest with these palpitations Instructed to go to ER for evaluation. Patient voiced understanding. Sarita Minaya RN documented in this encounter [facility] 07-28-2023 History of Present illness Narrative Dimitri Vasquez is a 28 y.o. adult seen today because of thin body habitus. Care was provided today by Fabi Mora MD and Leti Muñoz [facility]. Also in attendance: his and parents. HPI I personally reviewed all available medical records and pathology results. In 9th grade Dimitri started having palpitations. In [id number] he had chest pain and palpitations. An echocardiogram at that time described a tricuspid aortic valve and an aortic root of 3.0 cm (normal Z score). A stress treadmill echo showed premature atrial contractions, premature ventricular contractions when his pulse was <125, and occasional ventricular bigeminy. He was treated on fleicanide and then metoprolol but was stopped when each one caused bradycardia. His mother reported that Dimitri had bradycardia in the 20s after a surgical procedure. Another echo on 03/16/2023 at the [facility] showed a bicuspid aortic valve and 2+ aortic insufficiency. A 24-hr monitor on 06/06/2023 showed numerous PVCs with about a 9.4% burden. The PVCs had a monomorphic appearance with right bundle branch block and a left superior axis morphology. There was occasional bigeminy. He was seen on 07/20/[address] [facility] who scheduled a cardiac MRI on 09/29 and plans to discuss ablation or pacemaker after. Dimitri has always been thin. His parents state that he has always been a slow walker with a stiff gait. As a young child he had to be carried the 100 yard distance between family houses because his legs were too tired. He complains of polyarthralgia without swelling. He notes some changes in his upper arms with decreased muscle mass and some weakness. He is unable to raise his arms above his head. He has noted scoliosis as a young adult; it was not present in high school. It seems to be worsening. His primary growth spurt was at age 12-13. PMH Dimitri was born by due to a breech presentation. He had a number of ENT issues as a small child and had a tonsillectomy/adenoidectomy and myringotomy. 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 He also had left amblyopia diagnosed at age 2 yr and has 20/200 vision in that eye. Dimitri has had multiple broken bones. Most have been extremity fractures linked to childhood trauma. He broke 3 ribs as an adult with coughing due to bronchitis. He had surgery for thoracic outlet syndrome with a posterior cervical approach. Family history: I personally reviewed the family history and assessed it for genetic risk. His mother is 5'4 and father 5'11 . Neither of them have a history of palpitations or muscle weakness. Dimitri does not have any siblings. Social history: He is and lives with his . 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 He drinks a liter of caffeinated Mountain Dew each day and chews tobacco. Review of Systems Constitutional: Positive for fatigue. HENT: Positive for tinnitus. Eyes: Positive for visual disturbance. Respiratory: Positive for cough, shortness of breath and wheezing. Cardiovascular: Positive for chest pain and palpitations. Gastrointestinal: Positive for abdominal pain, constipation, diarrhea and nausea. Endocrine: Positive for cold intolerance and heat intolerance. Musculoskeletal: Positive for arthralgias, back pain and myalgias. Allergic/Immunologic: Positive for environmental allergies and food allergies. Neurological: Positive for dizziness, weakness, numbness and headaches. Hematological: Bruises/bleeds easily. Psychiatric/Behavioral: The patient is nervous/anxious. Physical Exam Constitutional: Comments: Very thin HENT: Right Ear: External ear normal. Left Ear: External ear normal. Ears: Comments: Attached lobules Nose: Nose normal. Comments: Thin, with downturned tip Mouth/Throat: Comments: Teeth with multiple caries. Irregular. Eyes: Extraocular Movements: Extraocular movements intact. Conjunctiva/sclera: Conjunctivae normal. Pupils: Pupils are equal, round, and reactive to light. Neck: Comments: 5 cm well healed vertical scar on right rear neck. Well healed 5 cm scar in right supraclavicular fossa. Neck appears somewhat stiff with a broad base Chest: Comments: No pectus deformity. Narrow elongated rib cage. Soft tissue enlargement at 2nd right ICS. Slight irregularity at right lower costochondral junction Musculoskeletal: Comments: Negative thumb and wrist signs. No hypermobility. Hips, knees and wrists have some decreased mobility. Decreased thenar imminence bilaterally Forward bend with elevated right rib cage. Pelvic tilt with right 1 cm higher than left. When asked to raise his arms and push against a flat surface, the scapulae moved together tightly; no winging Skin: Comments: No striae. Normal scars. No increased extensibility. Neurological: Mental Status: He is oriented to person, place, and time. Cranial Nerves: No cranial nerve deficit. Comments: Gait appears stiff and slow. Some discomfort when asked to stand up or sit down. Psychiatric: Mood and Affect: Mood normal. Behavior: Behavior normal. Thought Content: Thought content normal. Judgment: Judgment normal. Vitals: 07/28/23 0805 BP: 123/74 Pulse: (!) 45 Resp: 16 Temp: 98 degrees F (36.7 degrees C) TempSrc: Oral SpO2: 100% Weight: 51.8 kg (114 lb 3.2 oz) Height: 1.778 m (5' 10 ) Body mass index is 16.39 kg/m . Counseling: We discussed his cardiac findings in detail, explaining many of the terms he has heard from other providers. Mr Vasquez does NOT meet the clinical criteria for Marfan syndrome. He does not have marfanoid musculoskeletal features or an increased aortic root size. We discussed that rhythm disturbances of the heart can be isolated issues or can be related to inherited diseases of the heart muscle or of skeletal muscle. With the combination of features he has, it is concerning that he might have a type of muscular dystrophy such as limb girdle muscular dystrophy. We also discussed that having a specific diagnosis could be very helpful to his cardiology team in selecting the most appropriate management for him. We reviewed the possible genetic testing result outcomes: pathogenic variant, negative, or variant of uncertain significance. We explained that a positive (pathogenic variant) result will confirm the diagnosis. A variant of uncertain significance will neither confirm nor eliminate a diagnosis. In the case of a negative result, it will mean that we did not identify the underlying molecular cause, however, it may not affect the clinical diagnosis. Impression: Bicuspid aortic valve with 2+ aortic insufficiency Ventricular dysrhythmia, baseline bradycardia Scoliosis BMI <16.5 Recommendation: Blood was obtained for a panel of genes that includes cardiomyopathies, arrhythmias, aortopathies (Marfan syndrome), and comprehensive muscular dystrophies and sent to [employer]. We expect results in 2-3 weeks and will call him when they return. Dimitri was seen in the [facility] on 07/28/2023 for genetic evaluation to rule out aortopathy. Dimitri was accompanied to the appointment by his , Pepper, mother Susu, and father, Rj. Care was provided by Leti Muñoz MS, [facility] and assistant dean of students, Palmer Benson, observed the session Prior to the visit, Dimitri's medical records in the patient's EMR were reviewed, including, but not limited to, available clinic notes, physician consultations, laboratory tests, imaging reports, cardiac studies, and other investigations and evaluations. The case was also reviewed with Dr. Mora as needed prior to seeing the patient. HISTORY Born approximately 3 weeks early via due to breech presentation. weight: 6# and length: 18 inches. No complications and discharged home shortly after . PAST MEDICAL HISTORY Dimitri's mother reports frequent doctor's appointments in [employer] for illnesses but no hospitalizations. In 9th or 10 th grade (around 2009) he had an episode of headache, irritably and blurry vision with heart arrhythmia and was seen by cardiology. Reported to have a normal ECG and echo at that time. He continued to have symptoms of heart palpitations and shortness of breath over the years leading him to present to cardiology again around end of 2017.. An echo was performed in March 2019 and results were reported as 1. Normal left ventricular size and function. 2. Normal aortic root size. 3. Mild posterior leaflet prolapse of the mitral valve. 4. Aortic insufficiency 2+. Stress echo with electrocardiogram was performed and reported as normal. He underwent EKG and Holter monitoring again in 2019. ECG On 10/2020 showed marked sinus bradycardia right axis; incomplete right bundle branch block and left ventricular hypertrophy Holter in September 2002 showed no sustained or clinically significant arrhythmias. There are frequent PVCs noted associated with symptoms of hard heart beats. However, the total volume of PVCs is only 4%. Other symptoms are associated with normal sinus rhythm. He was treated with two different medications for approximately three-four months but stopped as they decreased his heart rate too much. He continues to experience SOB, chest pain, palpitations and near syncopal episodes. More recent cardiac work-up in 2022 included a 24 hour Holter monitor that showed normal sinus rhythm with frequent PVCs and rare PACs. ECG in 2022 also found sinus rhythm with frequent PVCs in a pattern of bigeminy; rightward axis; incomplete right bundle branch block, borderline ECG. He is scheduled for a cardiac MRI on 09/29/2023 and then plans will be made for management. He reported a history of headaches in 2013 but neurology work-up was within normal limits. He tried nortriptyline and amitriptyline to treat symptoms but stopped using them due to side effects impacting his day-to-day functioning. He reports a long standing history of fluctuating constipation and significant diarrhea. He also reports recent onset of lower extremity swelling (feet and ankles) and a diagnosis of Raynaud's. He has a history of dental crowding.He had seven teeth pulled (not for caries), but no orthodontia. He began wearing corrective lenses approximately 3 years ago. Left eye is 20/200 with amblyopia and he has some light sensitivity. He also reports having tinnitus and high tone hearing loss (specifically women's voices). He reports being diagnosed with mild scoliosis at 24 years of age which as progressed over the last 3-4 years. He reports flat, wide fee, but skinny back of his foot. Additionally he reports that his full foot does not really touch the floor due to his toes. He has a history of fractures. Broke left wrist requiring casting at 6 years of age playing football. Broke right wrist requiring casting at 6 years of age (11 months after prior wrist fracture) while wrestling. At 12 years of age he fell through upper story of a garage and hit a tractor which knocked him unconscious as well as causing a fractured ulnar, radius, and elbow and a shoulder dislocation. Fractured 2 ribs coughing when he had bronchitis. Fractured left pinky knuckle punching something in anger at 18 years of age. Fractured 3-4 ribs when a table saw kicked out and hit him in the side at 20 years of age. Fractured right toe when accidentally ran into a concrete block. After a fall he herniated his L4/L disc. He has also subluxed his left shoulder a few times and states he has lots of cracking and popping of joints. PAST SURGICAL HISTORY Resection of first rib to treat left thoracic outlet syndrome in 2015 and tonsillectomy. FAMILY HISTORY A three generation pedigree was obtained. Immediate family history is summarized here and a detailed pedigree can be found in the Media tab, labeled Genetics Pedigree . It is important to note that unless stated, we have not confirmed the family's medical diagnoses with medical records. Maternal History 51 year old mother with a history of a stroke in 2013, currently on blood thinners. H/o small PFO and one episode of Afib. Thoracic outlet syndrome, HTN, Jacques's esophagus. 64 year old maternal aunt with fibromyalgia/joint issues; psychiatric issues, GI problems, and HTN. 66 year old maternal uncle with TN, Bilateral knee and elbow replacements and bilateral wrist surgery; SC with stents. Female first cousin with DM2 and leg stents Male first cousin who has esophageal issues (food gets stuck in throat) 62 year old maternal aunt with HTN Male first cousin with DM2 67 year old maternal aunt with HTN and fibromyalgia/joint issues Maternal grandmother at 88 from complications related to CAD and PAD, who also had a history of COPD Maternal grandfather at 74 from small cell carcinoma of the lung Maternal great uncle in from sudden cardiac in forties; had a history of rheumatic fever Maternal great grandfather at 42 from what is reported to be MS Paternal History: 52 year old father with HTN, prediabetes, arthritis, Jacques's esophagus. 62 year old paternal aunt who had gynecological cancer treated with radiation and possibly chemo in her 40's. 54 year old paternal aunt with HTN, anxiety, arthritis, heart palpitations and hole in the heart 61 year old paternal aunt with HTN and diverticulitis Cousin with PVCs 67 year old paternal uncle with glaucoma, CAD, and arthritis. 59 year old paternal uncle with brain tumor s/p surgery and doing well 60 year old paternal uncle with DM, glaucoma, and HTN 65 year old paternal uncle with SC s/p CABGx3; carpal tunnel syndrome surgery, HTN, and Jacques's esophagus. Paternal grandfather at 78 from lung cancer Paternal grandmother at 72 from uterine cancer. GENETIC COUNSELING We recommend that Dimitri undergo genetic analysis of the genes associated with inherited cardiac disorders such as aortopathies, arrhythmias, cardiomyopathies, and structural defects. As well as a comprehensive muscular dystrophy panel. We reviewed the possible genetic testing result outcomes: pathogenic variant, negative, or variant of uncertain significance. Explained that a positive (pathogenic variant) result will confirm the diagnosis of a hereditary condition. A variant of uncertain significance will neither confirm or eliminate a diagnosis of hereditary condition. In the case of a negative result, it will mean that we did not identify the underlying molecular cause of his clinical features. Based upon Dimitri's personal and family history, Dimitri consented to pursue germline testing. The following panels were ordered: Comprehensive Arrhytmia and Cardiomyopathy, Aortopathy Comprehensive Panel, Congenital Heart Disease Panel, and the Comprehensive Muscular Dystrophy panel through [facility] (ordering provider: Abby). Sample for testing will be obtained by blood draw today. Dimitri elected insurance billing and sponsored testing. We will contact Dimitri via preference selected below when results are available. We will make specific follow-up and management recommendations based on the test result. Results Delivery Preference [] Uploaded directly to [employer] [x] Telephone call followed by upload to [employer] documented in this encounter [facility] 07-28-2023 Instructions DAVIE Page - 07/28/2023 8:30 AM EDT It was a pleasure seeing you today in the [facility]. As we discussed, based upon our evaluation today we recommended that you undergo a next generation sequencing panel for genes associated with inherited cardiac disorders (such as cardiomyopathies, arrhythmias, structural changes, and aortopathies), as well as a panel of genes assessing risk for inherited neuromuscular disorders.. Results should be available in 2-4 weeks and we will contact you by phone when we receive them. At that time, we will send you a letter summarizing your results and our medical recommendations. In the meantime, should you have any questions or concerns, please do not hesitate to contact our office. We can be reached at [phone]. Sincerely, Leti Muñoz M.S., [facility] Certified Genetic Counselor Professor, Clinical Internal Medicine Fabi Mora M.D. Professor Emeritus, Clinical Internal Medicine documented in this encounter [facility] 07-22-2023 Miscellaneous Notes I placed procedure request for PVC catheter ablation. I ordered cardiac MRI that needs completed before we can proceed with the ablation procedure. Please contact him to provide instructions how to schedule the MRI. Maurice Haney MD July 22, 2023 6:19 PM documented in this encounter [facility] 07-20-2023 Note HNO ID: [id number] Author: Maurice Haney MD Service: ? Author Type: Physician Type: Progress Notes Filed: 07/22/2023 6:26 PM Note Text: PRIMARY CARE PHYSICIAN: Robert Byrnes () [address] [place] [address] REFERRING PHYSICIAN: Austen Bradley MD () [address] [address] Patient Care Team: Mary Dozier as PCP - General (Family Medicine) Austen Bradley as Specialty Director Of Housing [employer] (Cardiology) Roberto Carlos Byrnes as Specialty Director Of [employer] (Internal Medicine) CHIEF COMPLAINT: Evaluation for arrhythmia HISTORY OF PRESENT ILLNESS: Mr. Vasquez is a 28 year old male who presents today for evaluation of arrhythmia, accompanied by his . He is referred by Dr. Bradley of [facility]. Mr. Vasquez has a long history of palpitations and arrhythmia. He states from an early age even childhood --- he states even as a 6-year-old child he had irregular heartbeats associated with palpitation and jabbing chest pain. He states that no arrhythmia was documented until he was about 14 years old. He thinks the arrhythmia documented was premature ventricular contractions (PVCs). He has been evaluated by multiple stem processing machine operator over the years, more recently by Dr. Manning at [facility], and also by Dr. Mazariegos at [facility]. He has been treated in the past with a beta-daphne (metoprolol) but this was discontinued due to bradycardia. He was also treated in the past with flecainide, discontinued in October 2020 due to inefficacy. Cardiac monitoring has revealed PVCs. A 24-hour monitor 06/06/2023 revealed frequent PVCs about 9.4% burden. He has some cardiac issues structurally, echocardiogram in February 2023 revealed bicuspid aortic valve and also mild mitral valve prolapse. He did have normal left ventricular systolic function, LVEF 55%. He also has a history of thoracic outlet syndrome, underwent first rib resection in 2015 and redo in 2016. He states he experiences frequent palpitations, flutters that occur every day, sometimes lasting a few minutes other times lasting for hours. He states he experiences lightheadedness and the sharp chest discomfort with the arrhythmia. He also states that he has been experiencing exertional shortness of breath that is constant, seems to be unrelated to the arrhythmia. He states he has been seeing a home paraprofessional in this regard, and states that he is being evaluated for possible cystic fibrosis. He states he was in the [facility] recently, in April 2023 he had gone to his PCP for cold symptoms and was noted to have bradycardia by some type of machine measurement, either blood pressure or pulse oximeter. He was sent to the [facility] and was found to be in ventricular bigeminy which accounted for the pseudo bradycardia (pulse deficit) documented in the PCP office. He denies orthopnea, PND, syncope. I have confirmed and edited as necessary, the PFSH and ROS obtained by others. PAST MEDICAL HISTORY Diagnosis Date Allergic rhinitis Asthma Bicuspid aortic valve Bradycardia Chest pain Congenital insufficiency of aortic valve Essential hypertension MVP (mitral valve prolapse) Nonrheumatic mitral (valve) prolapse Palpitations Peripheral cyanosis Pulmonary air trapping PVC's (premature ventricular contractions) Scoliosis Shoulder pain Smokeless tobacco use SOB (shortness of breath) Tachycardia TOS (thoracic outlet syndrome) Unspecified chronic bronchitis (HCC) Ventricular premature depolarization PAST SURGICAL HISTORY Procedure Laterality Date PAST SURGICAL HISTORY OF tonsillectomy PAST SURGICAL HISTORY OF 2014 TOS s/p rib rection SOCIAL HISTORY Social History Tobacco Use Smoking status: Never Smokeless tobacco: Current Types: Snuff Tobacco comments: 09/15/15: uses less than 0.75 of a can per day Vaping Use Vaping Use: Never used Substance Use Topics Alcohol use: Not Currently Drug use: Not Currently FAMILY HISTORY Problem Relation Age of Onset Stroke Mother 4 strokes (from high BP) Hypertension Mother Hypertension Father Heart Maternal Grandmother Heart Maternal Grandfather had valve replacement (? mitral) Heart Paternal Uncle multiple paternal uncles with heart problems ALLERGIES: ALLERGIES Allergen Reactions Amitriptyline Other: See Comments Dizziness Amoxapine Diarrhea Amoxicillin GI Upset Clavulanic Acid Diarrhea Fish Derived Diarrhea Gabapentin Unknown Milk Diarrhea Penicillins Unknown Shellfish Other: See Comments flatulance MEDICATIONS: albuterol HFA (PROVENTIL HFA, VENTOLIN HFA) 90 mcg/actuation inhaler Inhale 2 Puffs as instructed. As needed meloxicam (MOBIC) 7.5 mg tablet Take 7.5 mg by mouth once daily. guaiFENesin (MUCINEX) 1,200 mg Ta12 Take by mouth twice daily. albuterol (PROVENTIL) 2.5 mg /3 mL (0.083 %) nebulizer solution SYMBICORT 160-4.5 mcg/actuati (more content not included)... [facility] PVCs (premature ventricular contractions) Other premature beats Mitral valve prolapse Mitral valve disorders Bicuspid aortic valve Congenital insufficiency of aortic valve Palpitations Other cardiomyopathy (HCC) documented in this encounter [facility] Summary Purpose Family History No Family History Records FoundNo Family History Records FoundNo Family History Records FoundNo Family History Records FoundNo Family History Records Found Advance Directives No Advanced Directives Records FoundNo Advanced Directives Records FoundNo Advanced Directives Records FoundNo Advanced Directives Records FoundNo Advanced Directives Records Found Additional Source Comments (unrecognized sect ion and content) No Status Records FoundNo Status Records FoundNo Status Records FoundNo Status Records FoundNo Status Records Found INFORMATION SOURCE (unrecogn ized section and content) DATE CREATED AUTHOR AUTHOR'S ORGANIZ ATION 03/28/2023 Ayaz Graham [facility] DATE CREATED AUTHOR AUTHOR'S ORGANIZ ATION 09/04/2023 [facility] DATE CREATED AUTHOR AUTHOR'S ORGANIZ ATION 09/10/2023 [facility] DATE CREATED AUTHOR AUTHOR'S ORGANIZ ATION 10/24/2023 Tohatchidelia Almeida [facility] Source Comments (unrecognize d section and content) In the event this informatio n is protected by the Federal Confidentiality of Alcohol and Drug Abuse Patient Records regulations: The Federal rules restrict any use of the information to criminally investigate or prosecute any alcohol or drug abuse patient.[facility] the event this information is protected by the Federal Confidentiality of Alcohol and Drug Abuse Patient Records regulations: The Federal rules restrict any use of the information to criminally investigate or prosecute any alcohol or drug abuse patient.[facility] the event this information is protected by the Federal Confidentiality of Alcohol and Drug Abuse Patient Records regulations: The Federal rules restrict any use of the information to criminally investigate or prosecute any alcohol or drug abuse patient.[facility] the event this information is protected by the Federal Confidentiality of Alcohol and Drug Abuse Patient Records regulations: The Federal rules restrict any use of the information to criminally investigate or prosecute any alcohol or drug abuse patient.[facility] the event this information is protected by the Federal Confidentiality of Alcohol and Drug Abuse Patient Records regulations: The Federal rules restrict any use of the information to criminally investigate or prosecute any alcohol or drug abuse patient.[facility] the event this information is protected by the Federal Confidentiality of Alcohol and Drug Abuse Patient Records regulations: The Federal rules restrict any use of the information to criminally investigate or prosecute any alcohol or drug abuse patient.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, ventricular dysrhythmia Specialty Diagnoses / Procedures Referred By Elba pompa Referred To Contact Genetics Diagnoses At risk for genetic disorder Mary Dozier FNP [address] [place] [address] [facility] [address] [place] [address] Referral ID Status Reason Start Date Expiration Date V isits Requested Visits Authorized [id number] New Request 05/24/2023 06/17/2024 1 1 Reason Comments Patient Update Reason Comments Received Outside Medical Records Reason Comments Other Please protocol this Cardiac MRI Specialty Diagnoses / Procedures Referred By Elba pompa Referred To Contact MR IMAGING Diagnoses PVCs (premature ventricular contractions) Mitral valve prolapse Bicuspid aortic valve Palpitations Other cardiomyopathy (HCC) Procedures MRI CARDIAC VELOCITY FLOW MAP CARDIAC MRI FOR VELOCITY FLOW MAPPING Maurice Haney MD [address] [facility] [address] [place] [address] [place] [address] Referral ID Status Reason Start Date Expiration Date V isits Requested Visits Authorized [id number] Closed Auto-Generate d Referral 09/29/2023 10/29/2023 1 1 Reason Onset Date Comments Results 10/06/2023 Care Teams (unrecognized sec tion and content) [employer] Installer Relationship Specialty Start Date End Date Mary Dozier FNP [address] [id number] PCP - General Nurse Practitioner - Family 07/28/23 [employer] Installer Relationship Specialty Start Date End Date Mary Dozier [address] [place] [address] PCP - General Family Medicine 07/20/23 Austen Bradley MD [address] [place], [place] [id number] Specialty Director Of Housing And Energy Services Cardiology 07/19/23 Roberto Carlos Byrnes [address] [place] [phone] Specialty Director Of Housing And Energy Services Internal Medicine 07/20/23 [employer] Mar[employer] Installer Relationship Specialty Start Date End Date Mary Dozier CNP [address] [place] [address] PCP - General Family Medicine 07/20/23 Austen Bradley MD [address] [place] [id number] Specialty Director Of Housing And Energy Services Cardiology 07/19/23 Roberto Carlos Byrnes [address] [place] [phone] Specialty Director Of Housing And Energy Services Internal Medicine 07/20/23 [employer] Installer Relationship Specialty Start Date End Date Mary Dozier CNP [address] [place] [id number] PCP - General Family Medicine 07/20/23 Austen Bradley MD [address] [place] [id number] Specialty Director Of Housing And Energy Services Cardiology 07/19/23 Roberto Carlos Byrnes [address] [place] [phone] Specialty Director Of Housing And Energy Services Internal Medicine 07/20/23 FOR RECORDS PERTAINING TO PATIENTS WHO ARE OR HAVE BEEN ENROLLED IN A CHEMICAL DEPENDENCY/SUBSTANCEABUSE PROGRAM, SOME INFORMATION MAY BE OMITTED. This clinical summary was aggregated from multiple sources. Caution should be exercised in using it in the provision of clinical care. This summary normalizes information from multiple sources, and as a consequence, information in this document may materially change the coding, format and clinical context of patient data. In addition, data may be omitted in some cases. CLINICAL DECISIONS SHOULD BE BASED ON THE PRIMARY CLINICAL RECORDS. [facility] provides no warranty or guarantee of the accuracy or completeness of information in this document.
[2023-12-07 17:44] LABS: Absolute Lymphocyte Count 2.08 X10^3/uL (0.83-4.51); Absolute Neutrophil Count 5.1 X10^3/uL (2.0-7.7); Basophil# 0.03 X10^3/uL; Basophil% 0.4 % (0-1); Eosinophil# 0.04 X10^3/uL; Eosinophils% 0.5 % (0-5); Hemoglobin 16.4 g/dL (13.0-16.5); Lymphocyte # 2.08 X10^3/ul (0.83-4.51); Lymphocyte % 26.9 % (19-41); Mean Corp Hgb Conc 34.9 g/dL (32-36); Mean Corpuscular Hgb 30.4 pg (27.0-32.0); Monocyte% 6.5 % (0-10); NRBC Flagged by Analyzer 0 % (0-5); Neutrophil # 5.08 X10^3/uL (2.7-7.7); Neutrophil % 65.6 % (47-70); Platelet Count 187 K/mm3 (150-450); RBC Distribution Width CV 11.4 % (11.6-14.6); RBC Distribution Width SD 36.7 fl (35.1-43.9); White Blood Count 7.7 K/mm3 (4.4-11.0)
[2023-12-07 18:17] LABS: ALB/GLOB Ratio 1.7 RATIO (0.9-2.4); AST(SGOT) 27 U/L (15-37); Alanine Aminotransfer ALT/SGPT 27 U/L (16-61); Albumin, Serum 4.9 g/dL (3.2-5.0); Alkaline Phosphatase 90 U/L (45-117); Anion Gap 3 (5-15); BUN 11 mg/dL (7-18); BUN/Creat Ratio 11.1 RATIO (10-20); Calcium,Total 9.7 mg/dL (8.5-10.1); Chloride 107 mmol/L (98-107); EST Glomerular Filtration Rate 95 mL/min (>60); Est Glom Filt Rate - Afr Amer 115 mL/min (>60); Globulin 2.9 g/dL (2.2-4.2); Glucose 93 mg/dL (74-106); Potassium 3.9 mmol/L (3.5-5.1); Protein, Total 7.8 g/dL (6.4-8.2); Sodium Level 140 mmol/L (136-145)
== END | disposition home or self-care (01) ==
LOC: MTLAB 16:11
PROVIDERS: PCP Nurse Practitioner Family; Referring Provider Internal Medicine Rheumatology; Visit Provider Internal Medicine Rheumatology
DX: M06.4 Inflammatory polyarthropathy (principal); M35.7 Hypermobility syndrome; M41.9 Scoliosis, unspecified; I49.3 Ventricular premature depolarization; I34.1 Nonrheumatic mitral (valve) prolapse; Q23.1 Congenital insufficiency of aortic valve; Z86.69 Personal history of other diseases of the nervous system and sense organs; Z79.899 Other long term (current) drug therapy
CPT/HCPCS: 36415; 80053; 85025

== ENCOUNTER → 2024-01-31 | Outpatient (CLI) | payer BC, SELFPAY ==
[2024-01-31 17:34] LABS: Absolute Lymphocyte Count 1.94 X10^3/uL (0.83-4.51); Absolute Neutrophil Count 4.1 X10^3/uL (2.0-7.7); Basophil# 0.02 X10^3/uL; Basophil% 0.3 % (0-1); Eosinophil# 0.04 X10^3/uL; Eosinophils% 0.6 % (0-5); Hematocrit 41.7 % (40-54); Hemoglobin 14.5 g/dL (13.0-16.5); Lymphocyte # 1.94 X10^3/ul (0.83-4.51); Lymphocyte % 29.3 % (19-41); Mean Corp Hgb Conc 34.8 g/dL (32-36); Mean Corpuscular Hgb 30.6 pg (27.0-32.0); Mean Platelet Vol. 10.3 fl (6.2-12.0); Monocyte# 0.49 X10^3/uL; Monocyte% 7.4 % (0-10); NRBC Flagged by Analyzer 0 % (0-5); Neutrophil # 4.12 X10^3/uL (2.7-7.7); Neutrophil % 62.2 % (47-70); Platelet Count 166 K/mm3 (150-450); RBC Distribution Width CV 11.5 % (11.6-14.6); RBC Distribution Width SD 37.3 fl (35.1-43.9); Red Blood Count 4.74 M/mm3 (4.6-6.2); White Blood Count 6.6 K/mm3 (4.4-11.0)
[2024-01-31 18:06] LABS: ALB/GLOB Ratio 1.5 RATIO (0.9-2.4); AST(SGOT) 19 U/L (15-37); Alanine Aminotransfer ALT/SGPT 22 U/L (16-61); Albumin, Serum 4.2 g/dL (3.2-5.0); Alkaline Phosphatase 80 U/L (45-117); Anion Gap 6 (5-15); BUN 11 mg/dL (7-18); BUN/Creat Ratio 12.4 RATIO (10-20); Calcium,Total 9.2 mg/dL (8.5-10.1); Chloride 105 mmol/L (98-107); Creatinine, Serum 0.89 mg/dL (0.70-1.30); EST Glomerular Filtration Rate 108 mL/min (>60); Est Glom Filt Rate - Afr Amer 130 mL/min (>60); Globulin 2.8 g/dL (2.2-4.2); Glucose 68 mg/dL (74-106); Potassium 3.5 mmol/L (3.5-5.1); Sodium Level 141 mmol/L (136-145)
== END | disposition home or self-care (01) ==
LOC: MTLAB 15:14
PROVIDERS: PCP Nurse Practitioner Family; Referring Provider Internal Medicine Rheumatology; Visit Provider Internal Medicine Rheumatology
DX: M06.4 Inflammatory polyarthropathy (principal); M35.7 Hypermobility syndrome; M41.9 Scoliosis, unspecified; I49.3 Ventricular premature depolarization; I34.1 Nonrheumatic mitral (valve) prolapse; Q23.1 Congenital insufficiency of aortic valve; Z86.69 Personal history of other diseases of the nervous system and sense organs; Z79.899 Other long term (current) drug therapy
CPT/HCPCS: 36415; 80053; 85025

== ENCOUNTER → 2024-03-12 | Outpatient (CLI) | payer BC, SELFPAY ==
[2024-03-15 18:08] LABS: QNTFERON TB Mitogen Value > 10.00 IU/mL (.); QNTFERON TB Nil Value 0.04 IU/mL (.); QNTFERON TB1+ Ag Value 0.43 IU/mL (.); QNTFERON TB2+ Ag Value 0.17 IU/mL (.); QNTIFERON TB Positive Criteria Positive (Negative)
== END | disposition home or self-care (01) ==
LOC: MTLAB 16:49
PROVIDERS: PCP Nurse Practitioner Family; Referring Provider Internal Medicine Rheumatology; Visit Provider Internal Medicine Rheumatology
DX: M06.4 Inflammatory polyarthropathy (principal); Z79.899 Other long term (current) drug therapy
CPT/HCPCS: 36415; 86480

== ENCOUNTER → 2024-04-25 | Outpatient (CLI) | payer BC, SELFPAY ==
[2024-04-27 16:10] LABS: QNTFERON TB Mitogen Value > 10.00 IU/mL (.); QNTFERON TB Nil Value 0 IU/mL (.); QNTFERON TB1+ Ag Value 0.01 IU/mL (.); QNTFERON TB2+ Ag Value 0 IU/mL (.); QNTIFERON TB Positive Criteria Negative (Negative)
== END | disposition home or self-care (01) ==
PROVIDERS: PCP Nurse Practitioner Family; Referring Provider Internal Medicine Rheumatology; Visit Provider Internal Medicine Rheumatology
DX: M06.09 Rheumatoid arthritis without rheumatoid factor, multiple sites (principal); Z79.899 Other long term (current) drug therapy
CPT/HCPCS: 36415; 86480

== ENCOUNTER → 2024-05-04 | Outpatient (CLI) | payer BC, SELFPAY ==
[2024-05-04 17:32] LABS: Absolute Lymphocyte Count 1.87 X10^3/uL (0.83-4.51); Absolute Neutrophil Count 2.6 X10^3/uL (2.0-7.7); Basophil# 0.02 X10^3/uL; Basophil% 0.4 % (0-1); Eosinophil# 0.05 X10^3/uL; Hematocrit 43.4 % (40-54); Hemoglobin 14.8 g/dL (13.0-16.5); Lymphocyte # 1.87 X10^3/ul (0.83-4.51); Lymphocyte % 37.5 % (19-41); Mean Corp Hgb Conc 34.1 g/dL (32-36); Mean Corpuscular Hgb 30.2 pg (27.0-32.0); Mean Corpuscular Volume 88.6 fL (80-94); Mean Platelet Vol. 10.4 fl (6.2-12.0); Monocyte# 0.44 X10^3/uL; Monocyte% 8.8 % (0-10); NRBC Flagged by Analyzer 0 % (0-5); Neutrophil % 52.1 % (47-70); Platelet Count 174 K/mm3 (150-450); RBC Distribution Width CV 11.3 % (11.6-14.6); RBC Distribution Width SD 36.3 fl (35.1-43.9)
[2024-05-04 17:42] LABS: ALB/GLOB Ratio 1.3 RATIO (0.9-2.4); AST(SGOT) 20 U/L (15-37); Alanine Aminotransfer ALT/SGPT 18 U/L (16-61); Albumin, Serum 4.1 g/dL (3.2-5.0); Alkaline Phosphatase 97 U/L (45-117); Anion Gap 6 (5-15); BUN 12 mg/dL (7-18); BUN/Creat Ratio 11.4 RATIO (10-20); Calcium,Total 9.3 mg/dL (8.5-10.1); Chloride 104 mmol/L (98-107); Creatinine, Serum 1.05 mg/dL (0.70-1.30); EST Glomerular Filtration Rate 89 mL/min (>60); Est Glom Filt Rate - Afr Amer 107 mL/min (>60); Globulin 3.1 g/dL (2.2-4.2); Glucose 93 mg/dL (74-106); Protein, Total 7.2 g/dL (6.4-8.2); Sodium Level 140 mmol/L (136-145)
== END | disposition home or self-care (01) ==
LOC: MTLAB 16:13
PROVIDERS: PCP Nurse Practitioner Family; Referring Provider Internal Medicine Rheumatology; Visit Provider Internal Medicine Rheumatology
DX: M06.09 Rheumatoid arthritis without rheumatoid factor, multiple sites (principal); Z79.899 Other long term (current) drug therapy
CPT/HCPCS: 36415; 80053; 85025

== ENCOUNTER → 2024-06-13 | Outpatient (CLI) | payer BC, SELFPAY ==
--- NOTE | 2024-06-13 15:11 | ART_ITS ---
Reason For Study: Claudication Procedure A bilateral lower extremity continuous wave Doppler with analog waveform analysis,segmental pressures,and ankle brachial indexes without exercise. Left Segmental Pressures Left brachial= 163mmHg. Left thigh = 139mmHg. Left calf = 161mmHg. Left posterior tibial artery = 154mmHg. Left dorsalis pedis artery = 145mmHg. Left digit = 145 mmHg. The left posterior tibial artery waveforms are triphasic. The left dorsalis pedis waveforms are triphasic. Right Segmental Pressures Right brachial= 155mmHg. Right calf = 166mmHg. Right posterior tibial artery = 154mmHg. Right dorsalis pedis artery = 145mmHg. Right digit = 82 mmHg. Indices The right ankle brachial index by the posterior tibial artery is 0.94. The right ankle brachial index by the dorsalis pedis is 0.89. The right digital-brachial index is 0.50. The left ankle brachial index by the posterior tibial artery is 0.94. The left ankle brachial index by the dorsalis pedis is 0.89. The left digital-brachial index is 0.89. VL/Lower Ext Art Exam w/o Exercis Interpretation Summary Right LEXA 0.94, mild arterial insufficiency. Doppler/PVR waveforms of the right leg normal at rest. Left LEXA 0.94, mild arterial insufficiency. Doppler/PVR waveforms and segmental pressures reveal [id number] femoral disease. Ordering Physician: Mary Hawley Referring Physician: FRANK OCHOA NP Performed By: Juan Saab RVT and Student
== END | disposition home or self-care (01) ==
LOC: CVS 15:10
PROVIDERS: PCP Nurse Practitioner Family; Referring Provider Nurse Practitioner Family; Visit Provider Nurse Practitioner Family
DX: Q23.1 Congenital insufficiency of aortic valve (principal); I73.9 Peripheral vascular disease, unspecified
CPT/HCPCS: 93923

== ENCOUNTER → 2024-07-02 | Outpatient (CLI) | payer BC, SELFPAY ==
--- NOTE | 2024-07-02 15:05 | ECHOD_ITS ---
Reason For Study: BICUSPID AORTIC VALVE Procedure This was a 2D Doppler, Color Flow transthoracic echocardiogram. Exam performed in department. Left Ventricle Normal LV size. Left ventricular systolic function is normal. The estimated ejection fraction is 53 %. No regional wall motion abnormalities noted. Right Ventricle Normal RV size. Normal systolic function. Atria Normal left atrium. Normal right atrium. Mitral Valve Posterior leaflet mitral valve prolapse. Tricuspid Valve Normal tricuspid valve. Mild tricuspid valve insufficiency. Aortic Valve Bicuspid aortic valve. Pulmonic Valve Normal pulmonic valve. Great Vessels Normal aortic root. The pulmonary artery is normal size. Normal inferior vena cava. Pericardium/Pleural No pericardial effusion. MMode/2D Measurements & Calculations LVIDd: 5.2 cm IVSd: 0.70 cm Ao root diam: 3.2 cm LVIDs: 3.5 cm LVPWd: 0.84 cm RVDd: 3.5 cm FS: 33.0 % LAV(MOD-bp): 43.1 ml LVAd ap4: 33.7 cm2 SV(MOD-sp4): 61.1 ml LAV(MOD-bp) Indexed: 26.2 ml/m2 LVLd ap4: 8.2 cm LAV(MOD-sp2): 40.5 ml EDV(MOD-sp4): 116.7 ml LAV(MOD-sp4): 43.3 ml EDV(sp4-el): 117.6 ml LVAs ap4: 21.3 cm2 LVLs ap4: 6.9 cm ESV(MOD-sp4): 55.5 ml ESV(sp4-el): 55.7 ml EF(MOD-sp4): 52.4 % EF(sp4-el): 52.6 % SV(sp4-el): 61.9 ml LA A4 area: 16.7 cm2 LA dimension(2D): 3.0 cm RA A4 area: 14.1 cm2 TAPSE: 1.8 cm Time Measurements MV dec time: 0.17 sec Doppler Measurements & Calculations MV E max jay: 67.1 cm/sec Lat Peak E' Jay: 15.0 cm/sec Med Peak E' Jay: 12.1 cm/sec MV A max jay: 43.9 cm/sec E/E' lat: 4.5 E/E' med: 5.6 MV E/A: 1.5 Ao V2 max: 135.0 cm/sec LV V1 max: 75.1 cm/sec PA V2 max: 79.5 cm/sec Ao max P.3 mmHg LV V1 max P.3 mmHg TR max jay: 180.4 cm/sec TR max P.0 mmHg ECHO/Echo Complete Interpretation Summary Normal LV size. Left ventricular systolic function is normal. The estimated ejection fraction is 53 %. Bicuspid aortic valve. Posterior leaflet mitral valve prolapse. Ordering Physician: Reji Phipps/Austen Bradley Referring Physician: ARMANI HENLEY Performed By: Ness Roque RDCS
== END | disposition home or self-care (01) ==
LOC: CVS 15:04
PROVIDERS: PCP Nurse Practitioner Family; Referring Provider Nurse Practitioner Family; Visit Provider Nurse Practitioner Family
DX: Q23.1 Congenital insufficiency of aortic valve (principal); I34.1 Nonrheumatic mitral (valve) prolapse; I49.3 Ventricular premature depolarization
CPT/HCPCS: 93306

== ENCOUNTER → 2024-08-01 | Outpatient (CLI) | payer BC, SELFPAY ==
[2024-08-01 17:38] LABS: Absolute Lymphocyte Count 2.25 X10^3/uL (0.83-4.51); Basophil# 0.03 X10^3/uL; Basophil% 0.5 % (0-1); Eosinophil# 0.04 X10^3/uL; Eosinophils% 0.7 % (0-5); Hemoglobin 15.5 g/dL (13.0-16.5); Lymphocyte # 2.25 X10^3/ul (0.83-4.51); Lymphocyte % 38.9 % (19-41); Mean Corp Hgb Conc 34.4 g/dL (32-36); Mean Corpuscular Hgb 29.9 pg (27.0-32.0); Mean Corpuscular Volume 86.9 fL (80-94); Mean Platelet Vol. 10.4 fl (6.2-12.0); Monocyte# 0.43 X10^3/uL; Monocyte% 7.4 % (0-10); NRBC Flagged by Analyzer 0 % (0-5); Neutrophil # 3.02 X10^3/uL (2.7-7.7); Neutrophil % 52.3 % (47-70); Platelet Count 188 K/mm3 (150-450); RBC Distribution Width CV 11.4 % (11.6-14.6); RBC Distribution Width SD 36.7 fl (35.1-43.9); Red Blood Count 5.18 M/mm3 (4.6-6.2); White Blood Count 5.8 K/mm3 (4.4-11.0)
[2024-08-01 18:07] LABS: ALB/GLOB Ratio 1.4 RATIO (0.9-2.4); AST(SGOT) 22 U/L (15-37); Alanine Aminotransfer ALT/SGPT 26 U/L (16-61); Albumin, Serum 4.4 g/dL (3.2-5.0); Alkaline Phosphatase 93 U/L (45-117); Anion Gap 4 (5-15); BUN 7 mg/dL (7-18); BUN/Creat Ratio 7.9 RATIO (10-20); Calcium,Total 9.7 mg/dL (8.5-10.1); Chloride 105 mmol/L (98-107); Creatinine, Serum 0.89 mg/dL (0.70-1.30); EST Glomerular Filtration Rate 108 mL/min (>60); Est Glom Filt Rate - Afr Amer 131 mL/min (>60); Globulin 3.1 g/dL (2.2-4.2); Glucose 94 mg/dL (74-106); Potassium 4.1 mmol/L (3.5-5.1); Protein, Total 7.5 g/dL (6.4-8.2); Sodium Level 138 mmol/L (136-145)
== END | disposition home or self-care (01) ==
LOC: MTLAB 16:23
PROVIDERS: PCP Nurse Practitioner Family; Referring Provider Internal Medicine Rheumatology; Visit Provider Internal Medicine Rheumatology
DX: M06.09 Rheumatoid arthritis without rheumatoid factor, multiple sites (principal); Z79.899 Other long term (current) drug therapy
CPT/HCPCS: 36415; 80053; 85025

== ENCOUNTER → 2024-10-24 | Outpatient (CLI) | payer BC, SELFPAY ==
[2024-10-24 17:45] LABS: Absolute Lymphocyte Count 2.19 X10^3/uL (0.83-4.51); Absolute Neutrophil Count 5.2 X10^3/uL (2.0-7.7); Basophil# 0.04 X10^3/uL; Basophil% 0.5 % (0-1); Eosinophil# 0.05 X10^3/uL; Eosinophils% 0.6 % (0-5); Hematocrit 43.3 % (40-54); Hemoglobin 15.1 g/dL (13.0-16.5); Lymphocyte # 2.19 X10^3/ul (0.83-4.51); Lymphocyte % 26.8 % (19-41); Mean Corp Hgb Conc 34.9 g/dL (32-36); Mean Corpuscular Hgb 30.5 pg (27.0-32.0); Mean Corpuscular Volume 87.5 fL (80-94); Mean Platelet Vol. 10.1 fl (6.2-12.0); Monocyte# 0.69 X10^3/uL; Monocyte% 8.4 % (0-10); NRBC Flagged by Analyzer 0 % (0-5); Neutrophil # 5.18 X10^3/uL (2.7-7.7); Neutrophil % 63.5 % (47-70); Platelet Count 278 K/mm3 (150-450); RBC Distribution Width CV 11.9 % (11.6-14.6); RBC Distribution Width SD 37.8 fl (35.1-43.9); Red Blood Count 4.95 M/mm3 (4.6-6.2); White Blood Count 8.2 K/mm3 (4.4-11.0)
[2024-10-24 18:04] LABS: ALB/GLOB Ratio 1.3 RATIO (0.9-2.4); AST(SGOT) 27 U/L (15-37); Alanine Aminotransfer ALT/SGPT 31 U/L (16-61); Albumin, Serum 4.2 g/dL (3.2-5.0); Alkaline Phosphatase 106 U/L (45-117); Anion Gap 4 (5-15); BUN 9 mg/dL (7-18); BUN/Creat Ratio 9.6 RATIO (10-20); Calcium,Total 9.6 mg/dL (8.5-10.1); Chloride 103 mmol/L (98-107); Creatinine, Serum 0.93 mg/dL (0.70-1.30); EST Glomerular Filtration Rate 101 mL/min (>60); Est Glom Filt Rate - Afr Amer 123 mL/min (>60); Globulin 3.3 g/dL (2.2-4.2); Glucose 78 mg/dL (74-106); Potassium 4.1 mmol/L (3.5-5.1); Protein, Total 7.5 g/dL (6.4-8.2); Sodium Level 138 mmol/L (136-145)
== END | disposition home or self-care (01) ==
LOC: MTLAB 16:40
PROVIDERS: PCP Nurse Practitioner Family; Referring Provider Internal Medicine Rheumatology; Visit Provider Internal Medicine Rheumatology
DX: M06.09 Rheumatoid arthritis without rheumatoid factor, multiple sites (principal); Z79.899 Other long term (current) drug therapy
CPT/HCPCS: 36415; 80053; 85025

== ENCOUNTER → 2025-03-08 | Outpatient (CLI) | payer BC, SELFPAY ==
[2025-03-08 10:26] LABS: Absolute Lymphocyte Count 1.54 X10^3/uL (0.83-4.51); Absolute Neutrophil Count 3.3 X10^3/uL (2.0-7.7); Basophil# 0.03 X10^3/uL; Basophil% 0.6 % (0-1); Eosinophil# 0.05 X10^3/uL; Eosinophils% 0.9 % (0-5); Hematocrit 46.8 % (40-54); Hemoglobin 16.1 g/dL (13.0-16.5); Lymphocyte # 1.54 X10^3/ul (0.83-4.51); Lymphocyte % 28.6 % (19-41); Mean Corp Hgb Conc 34.4 g/dL (32-36); Mean Corpuscular Hgb 30.3 pg (27.0-32.0); Mean Platelet Vol. 10.6 fl (6.2-12.0); Monocyte# 0.42 X10^3/uL; Monocyte% 7.8 % (0-10); NRBC Flagged by Analyzer 0 % (0-5); Neutrophil # 3.32 X10^3/uL (2.7-7.7); Neutrophil % 61.7 % (47-70); Platelet Count 211 K/mm3 (150-450); RBC Distribution Width CV 11.8 % (11.6-14.6); RBC Distribution Width SD 37.5 fl (35.1-43.9); Red Blood Count 5.32 M/mm3 (4.6-6.2); White Blood Count 5.4 K/mm3 (4.4-11.0)
[2025-03-08 10:55] LABS: ALB/GLOB Ratio 1.9 RATIO (0.9-2.4); AST(SGOT) 28 U/L (<=37); Alanine Aminotransfer ALT/SGPT 30 U/L (<=46); Albumin, Serum 4.8 g/dL (3.5-5.0); Alkaline Phosphatase 102 U/L (40-129); Anion Gap 12 (5-15); BUN 15 mg/dL (4-19); BUN/Creat Ratio 14.8 RATIO (10-20); Calcium,Total 9.7 mg/dL (7.6-11.0); Carbon Dioxide 25.3 mmol/L (21.0-32.0); Chloride 103 mmol/L (98-108); Creatinine, Serum 0.98 mg/dL (0.70-1.20); EST Glomerular Filtration Rate 107 (>60); Globulin 2.5 g/dL (2.2-4.2); Glucose 108 mg/dL (70-99); Potassium 4.3 mmol/L (3.3-5.1); Protein, Total 7.4 g/dL (5.9-8.4); Sodium Level 140 mmol/L (133-145); Total Bilirubin 0.54 mg/dL (0.00-1.30)
[2025-03-12 17:08] LABS: QNTFERON TB Mitogen Value > 10.00 IU/mL (.); QNTFERON TB Nil Value 0.01 IU/mL (.); QNTFERON TB1+ Ag Value 0.01 IU/mL (.); QNTFERON TB2+ Ag Value 0.03 IU/mL (.); QNTIFERON TB Positive Criteria Negative (Negative)
== END | disposition home or self-care (01) ==
LOC: MTLAB 08:30
PROVIDERS: PCP Nurse Practitioner Family; Referring Provider Internal Medicine Rheumatology; Visit Provider Internal Medicine Rheumatology
DX: M06.09 Rheumatoid arthritis without rheumatoid factor, multiple sites (principal); Z79.899 Other long term (current) drug therapy
CPT/HCPCS: 36415; 80053; 85025; 86480